=== PATIENT | male | born 1960 | race Caucasian/White ===

== ENCOUNTER 2017-01-11 13:27 | Emergency (ER) | payer OTHER ==
[~2017-01-11] VITALS: Ht 190.5 cm; Wt 154.2 kg
[~2017-01-11 13:27] MED LIST: -; ACETAMINOPHEN325 M1 PO; ADVAIR 250-501 EACH INH; ALEVE220 M1 PO; ALLOPURINOL 10100 M1 PO; ALLOPURINOL 30300 M2 PO; AMBIEN 10 MG TA10 MG PO; AMBIEN 5 MG TABL5 M1 PO; AMBIEN CR 6.26.25 M1 PO; AMBIEN CR12.5 MG PO; AMITRIPTYLINE H25 M2 PO; ASPIRIN EC81 M1 PO; ATORVASTATIN CA40 MG PO; BACLOFEN 10 MG10 MG PO; BACLOFEN 10MG T10 M1 PO; BAYER CHEWABLE81 MG PO; BENTYL20 MG PO; CEFTIN500 MG PO; COLACE100 MG PO; CYMBALTA30 MG PO; CYMBALTA60 MG PO; DEPAKOTE ER500 MG PO; DIAZEPAM 5 MG5 M1 PO; DICYCLOMINE HCL20 MG PO; DOXYCYCLINE 10100 MG PO; DOXYCYCLINE HYC50 M2 PO; ENDOCET 5-3251 EACH PO; FLOMAX PO; FOLIC ACID1 MG PO; GABAPENTIN 100100 MG PO; GLUCOPHAGE XR500 MG; GLUCOPHAGE XR500 MG PO; GLUCOPHAGE1000 MG PO; HUMALOG100 UNIT/1 SUBQ; HYDROCODONE-AP1 EAC6 PO; HYDROXYZINE PAM25 M1 PO; HYOSCYAMINE0.125 MG PO; IMITREX 25 MG T25 M1; INVEGA SUS117 MG/0.7 IM; INVEGA SUS156 MG/1 M IM; LEVEMIR SQ; LEVEMIR SUBQ; LIPITOR40 MG PO; METFORMIN HCL500 MG PO; NABUMETONE 500500 M2 PO; NABUMETONE 750750 M1 PO; NEURONTIN 300300 M1 PO; NEXIUM 40 MG CA40 M1 PO; NEXIUM40 MG PO; NORCO 5-325 TA1 EACH PO; NUVIGIL PO; NUVIGIL250 MG PO; PLAVIX 75 MG TA75 M1 PO; PROAIR HFA8.5 GM; PROAIR HFA8.5 GM INH; RELPAX40 MG PO; SIMVASTATIN40 MG PO; STOOL SOFTENER1 EAC2 PO; STOOL SOFTENER100 MG PO; SYMBICORT160 MCG/4. INH; SYMBICORT80 MCG/4.1 INH; SYMBYAX 6-50 M1 EACH PO; TRADJENTA5 MG PO; TRAMADOL 50 MG50 MG PO; TRICOR145 MG PO; VERAPAMIL E.R240 M1 PO; VISTARIL 25 MG25 M1 PO; ZANTAC 150MG T150 M1 PO; ZPAK PO; ZYVOX600 MG PO
[2017-01-11] MEDS ORDERED: ASPIR-TRIN325 MG PO (13:39)
[2017-01-11] MEDS ORDERED: NOVOLOG FL100 UNIT/M SC (13:40)
[2017-01-11] MEDS ORDERED: INVEGA TRI546 MG/1.7 IM (13:41)
[2017-01-11] MEDS ORDERED: PLAVIX 75 MG TA75 M1 PO (13:41)
[2017-01-11] MEDS ORDERED: LEVEMIR FL100 UNIT/2 SQ (13:41)
[2017-01-11] MEDS ORDERED: CLONAZEPAM2 MG PO (13:42)
[2017-01-11 13:58] LABS: ABSOLUTE NEUTROPHILS 7.8 thou/uL (1.4-8.2); BASOPHILS 0.5 % (0.0-2.0); EOSINOPHILS 0.8 % (0.0-3.0); HEMATOCRIT 41.7 % (42.0-52.0); HEMOGLOBIN 14.1 gm/dL (14.0-18.0); LYMPHOCYTES 16.6 % (24.0-44.0); MCHC 33.9 g/dL (28.0-37.0); MCV 82.7 fL (80.0-100.0); MONOCYTES 5.6 % (1.0-8.0); PLATELET COUNT 315 thou/uL (150-400); POLYS 76.5 % (36.0-66.0); RBC 5.04 mil/uL (4.50-6.00); RDW 15.6 % (10.5-14.5); WBC 10.2 thou/uL (4.0-11.0)
[2017-01-11 14:01] LABS: MANUAL DIFF NO
[2017-01-11 14:08] LABS: CALCIUM 9.1 mg/dL (8.5-10.1); CREATININE 1.1 mg/dL (0.7-1.3); POTASSIUM 3.4 mmol/L (3.5-5.1)
[2017-01-11 14:12] LABS: ALBUMIN 3.3 g/dL (3.4-5.0); TOTAL BILIRUBIN 0.7 mg/dL (<0.1-1.0)
[2017-01-11 14:41] LABS: URINE BILIRUBIN NEGATIVE (Negative); URINE BLOOD NEGATIVE (Negative); URINE COLOR YELLOW; URINE GLUCOSE-RANDOM* NEGATIVE (Negative); URINE KETONES NEGATIVE (Negative); URINE NITRITE NEGATIVE (Negative); URINE PROTEIN (DIPSTICK) NEGATIVE (Negative); URINE SPECIFIC GRAVITY 1.025 (1.003-1.035); URINE UROBILINOGEN 0.2 E.U./dl (0.2-1.0)
[2017-01-11] MEDS ORDERED: CIPRO500 MG PO ×2 (15:23→15:24)
[2017-01-11] MEDS ORDERED: FLAGYL500 MG PO ×2 (15:23→15:24)
[2017-01-11] MEDS ORDERED: HYDROCODONE-APA1 TA1 PO ×2 (15:23→15:24)
[2017-01-11] MEDS ORDERED: ZOFRAN ODT4 M1 PO ×2 (15:23→15:24)
[2017-01-11 15:55] VITALS: BP 133/95
== END 2017-01-11 15:56 | disposition home or self-care (01) ==
LOC: ER 13:27
PROVIDERS: Nurse Practitioner Family
DX: K57.32 Diverticulitis of large intestine without perforation or abscess without bleeding (principal); Z98.890 Other specified postprocedural states; E11.9 Type 2 diabetes mellitus without complications; G89.29 Other chronic pain; J45.909 Unspecified asthma, uncomplicated; Z86.73 Personal history of transient ischemic attack (TIA), and cerebral infarction without residual deficits; F20.89 Other schizophrenia; Z88.2 Allergy status to sulfonamides; Z91.048 Other nonmedicinal substance allergy status

== ENCOUNTER 2017-05-06 09:49 | Emergency (ER) | payer OTHER ==
[~2017-05-06] VITALS: Ht 190.5 cm; Wt 147.4 kg
[~2017-05-06 09:49] MED LIST changes: +ASPIR-TRIN325 MG PO; +CIPRO500 MG PO; +CLONAZEPAM2 MG PO; +FLAGYL500 MG PO; +HYDROCODONE-APA1 TA1 PO; +INVEGA TRI546 MG/1.7 IM; +LEVEMIR FL100 UNIT/2 SQ; +NOVOLOG FL100 UNIT/M SC; +ZOFRAN ODT4 M1 PO
[2017-05-06] MEDS ORDERED: DICYCLOMINE HCL20 MG PO (10:32)
[2017-05-06] MEDS ORDERED: LISINOPRIL5 MG PO (10:34)
[2017-05-06] MEDS ORDERED: NEXIUM40 MG PO (10:35)
[2017-05-06] MEDS ORDERED: NUVIGIL250 MG PO (10:36)
[2017-05-06] MEDS ORDERED: SYMBICORT160 MCG/4. INH (10:39)
[2017-05-06] MEDS ORDERED: DICLOFENAC SODI25 MG PO (11:17)
[2017-05-06 11:41] VITALS: BP 139/85
== END 2017-05-06 11:42 | disposition home or self-care (01) ==
LOC: ER 09:49
DX: I80.8 Phlebitis and thrombophlebitis of other sites (principal); E11.9 Type 2 diabetes mellitus without complications; F20.9 Schizophrenia, unspecified; F41.0 Panic disorder [episodic paroxysmal anxiety]; G89.29 Other chronic pain; M54.2 Cervicalgia; J45.909 Unspecified asthma, uncomplicated; I10 Essential (primary) hypertension; G47.30 Sleep apnea, unspecified; Z86.73 Personal history of transient ischemic attack (TIA), and cerebral infarction without residual deficits; Z88.2 Allergy status to sulfonamides; Z79.4 Long term (current) use of insulin

== ENCOUNTER 2017-06-23 | Inpatient (IN) | payer OTHER ==
[~2017-06-23] VITALS: Ht 190.5 cm; Wt 154.7 kg
[~2017-06-23] MED LIST changes: +DICLOFENAC SODI25 MG PO; -IMITREX 25 MG T25 M1; +IMITREX 25 MG T25 M1 PO; +LISINOPRIL5 MG PO
[2017-06-23 00:01] VITALS: BP 124/91
[2017-06-23] MEDS ORDERED: VITAMIN B-12500 MCG PO (00:14)
[2017-06-23] MEDS ORDERED: FLEXERIL PO (00:15)
[2017-06-23] MEDS ORDERED: COLACE100 MG PO (00:19)
[2017-06-23] MEDS ORDERED: INVEGA3 MG PO (00:21)
[2017-06-23] MEDS ORDERED: INCRUSE ELLI62.5 MCG INH (00:22)
[2017-06-23 00:24] LABS: ABSOLUTE NEUTROPHILS 6.2 thou/uL (1.4-8.2); BASOPHILS 0.7 % (0.0-2.0); EOSINOPHILS 1.2 % (0.0-3.0); HEMATOCRIT 42.7 % (42.0-52.0); HEMOGLOBIN 14.5 gm/dL (14.0-18.0); LYMPHOCYTES 21.8 % (24.0-44.0); MCH 29.1 pg (26.0-34.0); MCV 85.6 fL (80.0-100.0); MONOCYTES 9.3 % (1.0-8.0); PLATELET COUNT 233 thou/uL (150-400); RBC 4.99 mil/uL (4.50-6.00); RDW 15.5 % (10.5-14.5); WBC 9.2 thou/uL (4.0-11.0)
[2017-06-23 00:26] LABS: CALCIUM 8.9 mg/dL (8.5-10.1); CREATININE 1.1 mg/dL (0.7-1.3); MANUAL DIFF NO; POTASSIUM 3.6 mmol/L (3.5-5.1)
[2017-06-23] MEDS ORDERED: TRULICITY1.5 MG/0.5 SUBQ (00:26)
[2017-06-23] MEDS ORDERED: VENTOLIN HFA 1818 GM INH (00:27)
[2017-06-23 00:32] LABS: ALBUMIN 2.9 g/dL (3.4-5.0); TOTAL BILIRUBIN 0.2 mg/dL (<0.1-1.0); TOTAL PROTEIN 6.4 g/dL (6.4-8.2)
[2017-06-23 03:41] VITALS: BP 93/68
[2017-06-23 06:20] LABS: TSH 3.338 uIU/mL (0.358-3.740)
[2017-06-23 08:00] VITALS: BP 128/61
[2017-06-23 16:10] VITALS: BP 119/78
[2017-06-23 17:12] LABS: GLYCOHEMOGLOBIN (HGB A1C) 7.4 % (4.8-5.6)
[2017-06-23 19:27] VITALS: BP 136/85
[2017-06-24] VITALS (7 sets, daily range): BP systolic 100–136; BP diastolic 48–77
[2017-06-24 06:25] LABS: HEMATOCRIT 37.2 % (42.0-52.0); HEMOGLOBIN 12.4 gm/dL (14.0-18.0); MCH 28.7 pg (26.0-34.0); MCHC 33.2 g/dL (28.0-37.0); MCV 86.5 fL (80.0-100.0); RBC 4.31 mil/uL (4.50-6.00); RDW 15.2 % (10.5-14.5); WBC 6.7 thou/uL (4.0-11.0)
[2017-06-24 06:50] LABS: CALCIUM 8.2 mg/dL (8.5-10.1); POTASSIUM 3.6 mmol/L (3.5-5.1)
[2017-06-25 04:00] VITALS: BP 111/72
[2017-06-25 08:01] VITALS: BP 131/78
[2017-06-25] MEDS ORDERED: CIPRO500 MG/5 M PO (10:32)
[2017-06-25] MEDS ORDERED: FLAGYL500 MG PO (10:33)
[2017-06-25 10:40] VITALS: BP 111/73
== END 2017-06-25 11:13 | disposition home health service (06) | DRG 392 ==
LOC: ER → EROBS 02:45 → 4S 02:45
PROVIDERS: Emergency Medicine; Nurse Practitioner Acute Care
DX: K57.92 Diverticulitis of intestine, part unspecified, without perforation or abscess without bleeding (principal); I10 Essential (primary) hypertension; E78.5 Hyperlipidemia, unspecified; E11.9 Type 2 diabetes mellitus without complications; F20.9 Schizophrenia, unspecified; G40.909 Epilepsy, unspecified, not intractable, without status epilepticus; J45.909 Unspecified asthma, uncomplicated; M54.2 Cervicalgia; M54.5 Low back pain; G89.29 Other chronic pain; G47.33 Obstructive sleep apnea (adult) (pediatric); F80.82 Social pragmatic communication disorder; K21.9 Gastro-esophageal reflux disease without esophagitis; Z96.659 Presence of unspecified artificial knee joint; Z86.73 Personal history of transient ischemic attack (TIA), and cerebral infarction without residual deficits; Z82.49 Family history of ischemic heart disease and other diseases of the circulatory system; Z88.2 Allergy status to sulfonamides; Z91.040 Latex allergy status
CPT/HCPCS: 10100

== ENCOUNTER 2017-11-23 16:50 | Emergency (ER) | payer OTHER ==
[~2017-11-23] VITALS: Ht 190.5 cm; Wt 149.7 kg
[~2017-11-23 16:50] MED LIST changes: +CIPRO500 MG/5 M PO; +FLEXERIL PO; +INCRUSE ELLI62.5 MCG INH; +INVEGA3 MG PO; +TRULICITY1.5 MG/0.5 SUBQ; +VENTOLIN HFA 1818 GM INH; +VITAMIN B-12500 MCG PO
[2017-11-23 16:51] VITALS: BP 128/92
[2017-11-23] MEDS ORDERED: TRULICITY1.5 MG/0.5 INJECTION (17:08)
[2017-11-23] MEDS ORDERED: NUVIGIL250 MG PO (17:09)
[2017-11-23] MEDS ORDERED: DOXYCYCLINE 10100 MG PO (17:22)
== END 2017-11-23 17:43 | disposition home or self-care (01) ==
LOC: ER 16:50
DX: L03.317 Cellulitis of buttock (principal); I10 Essential (primary) hypertension; J45.909 Unspecified asthma, uncomplicated; E11.9 Type 2 diabetes mellitus without complications; G47.30 Sleep apnea, unspecified; M54.2 Cervicalgia; G89.29 Other chronic pain; G40.909 Epilepsy, unspecified, not intractable, without status epilepticus; Z86.73 Personal history of transient ischemic attack (TIA), and cerebral infarction without residual deficits; Z88.2 Allergy status to sulfonamides

== ENCOUNTER 2018-06-06 23:25 | Emergency (ER) | payer OTHER ==
[~2018-06-06] VITALS: Ht 190.5 cm; Wt 140.6 kg
[~2018-06-06 23:25] MED LIST changes: +TRULICITY1.5 MG/0.5 INJECTION
[2018-06-07] MEDS ORDERED: ALEVE220 MG PO (00:23)
[2018-06-07 00:32] VITALS: BP 126/85
== END 2018-06-07 00:35 | disposition home or self-care (01) ==
LOC: ER 23:25
DX: S50.01XA Contusion of right elbow, initial encounter (principal); K21.9 Gastro-esophageal reflux disease without esophagitis; E11.9 Type 2 diabetes mellitus without complications; F20.9 Schizophrenia, unspecified; G89.29 Other chronic pain; G40.909 Epilepsy, unspecified, not intractable, without status epilepticus; J45.909 Unspecified asthma, uncomplicated; I10 Essential (primary) hypertension; Z86.73 Personal history of transient ischemic attack (TIA), and cerebral infarction without residual deficits; Z79.4 Long term (current) use of insulin; Z79.899 Other long term (current) drug therapy; Z88.2 Allergy status to sulfonamides; Z88.8 Allergy status to other drugs, medicaments and biological substances; W19.XXXA Unspecified fall, initial encounter; Y93.89 Activity, other specified; Y92.89 Other specified places as the place of occurrence of the external cause; Y99.8 Other external cause status

== ENCOUNTER 2020-08-06 08:42 | Inpatient (IN) | payer OTHER ==
[~2020-08-06] VITALS: Ht 190.5 cm; Wt 269.0 kg
[2020-08-06 08:42] VITALS: BP 90/61
[~2020-08-06 08:42] MED LIST changes: +ALEVE220 MG PO
[2020-08-06 09:36] LABS: ABSOLUTE NEUTROPHILS 10.7 thou/uL (1.4-8.2); BASOPHILS 0.4 % (0.0-2.0); HEMOGLOBIN 13.1 gm/dL (14.0-18.0); LYMPHOCYTES 7.7 % (24.0-44.0); MCH 27.5 pg (26.0-34.0); MCV 85.9 fL (80.0-100.0); MONOCYTES 7.3 % (1.0-8.0); PLATELET COUNT 297 thou/uL (150-400); POLYS 84.6 % (36.0-66.0); RBC 4.77 mil/uL (4.50-6.00); RDW 16.1 % (10.5-14.5); WBC 12.7 thou/uL (4.0-11.0)
[2020-08-06 09:54] LABS: PROTIME 10.5 Seconds (9.3-11.4)
[2020-08-06 09:58] LABS: CALCIUM 8.7 mg/dL (8.5-10.1); CREATININE 1.1 mg/dL (0.7-1.3); POTASSIUM 4.7 mmol/L (3.5-5.1)
[2020-08-06 10:05] LABS: ALBUMIN 2.5 g/dL (3.4-5.0); APTT 19.8 Seconds (24.5-32.8); MAGNESIUM 1.7 mg/dL (1.8-2.4); TOTAL BILIRUBIN 0.9 mg/dL (0.2-1.0); TOTAL PROTEIN 5.8 g/dL (6.4-8.2)
[2020-08-06] MEDS ORDERED: MIDODRINE HCL2.5 M1 PO (12:31)
[2020-08-06] MEDS ORDERED: KEPPRA 500 MG500 MG PO (12:31)
[2020-08-06] MEDS ORDERED: ANUSOL-HC25 MG RECTAL (12:33)
--- NOTE | 2020-08-06 14:38 | EKG ---
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
[2020-08-06 15:31] VITALS: BP 107/66
--- NOTE | 2020-08-06 16:19 | NUR ---
TRIED CALLING REPORT TO ADMITTING FLOOR X 3 NOT READY. NURSE WILL CALL WHEN ABLE TO TAKE REPORT
[2020-08-06 17:36] LABS: HEMATOCRIT 31.4 % (42.0-52.0)
[2020-08-06 17:39] LABS: HEMOGLOBIN 10.6 gm/dL (14.0-18.0)
[2020-08-06] MEDS ORDERED: CLOZAPINE100 MG PO (18:40)
--- NOTE | 2020-08-06 18:42 | NUR ---
ATTEMPTED TO CALL REPORT TO FLOOR WHILE PT IN NUCLEAR MED, NOT AVAILABLE
[2020-08-06 19:44] VITALS: BP 103/55
--- NOTE | 2020-08-06 21:28 | NUR ---
DROP IN BP, ELIEZER DICKENS NOTIFIIED. 500 CC BOLUS STARTED. WILL CONTINUE TO MONITOR BP TO ENSURE STABLE BEFORE TRANSFER.
--- NOTE | 2020-08-06 22:22 | NUR ---
TW SAIRA DICKENS, VERIFIED LAST BP WITH SUPERINTENDENT NONSELLING, PER SAIRA SHE IS OK WITH PT GOING UP TO THE 3 WEST.
--- NOTE | 2020-08-06 22:43 | NUR ---
2240 PT TO FLOOR FROM ER, RESDTING IN BED WITH NO COMPLAINTS OF PAIN OR DISCOMFORT.FALL PRECAUTIONS IN PLACE, BASELINE ASSESSMENT COMPLETED. SEE ADMISSION ASSESSMENT, WILL CONTINUE TO MONITOR
[2020-08-07 05:43] LABS: HEMATOCRIT 29.3 % (42.0-52.0); HEMOGLOBIN 9.6 gm/dL (14.0-18.0); MCH 28.4 pg (26.0-34.0); MCHC 32.6 g/dL (28.0-37.0); MCV 87.1 fL (80.0-100.0); RBC 3.36 mil/uL (4.50-6.00); WBC 13.1 thou/uL (4.0-11.0)
[2020-08-07 07:46] VITALS: BP 91/42
[2020-08-07 12:24] VITALS: BP 87/59
--- NOTE | 2020-08-07 13:57 | NUR ---
INITIAL ASSESSMENT: PATRICIA reviewed chart and spoke with nursing and attending physician. Pt was admitted from [facility] and placed in Enhanced Isolation due to COVID-19. Pt is afebrile and not requiring O2. PATRICIA spoke with [facility] post-acute liaison, who states pt had his first COVID positive test at the facility on 07/23. PATRICIA placed call to pt's room. No answer. PATRICIA placed call to pt's sister, Faye. Contact number for Faye is no longer in service. Jesse Tan also listed as a contact for pt. PATRICIA spoke with Jesse via phone, who states he was pt's immigration case manager at [facility]. Pt has been off of their service since he moved [facility]. Jesse is no longer involved in pt's care. PATRICIA faxed clinical info to [facility] for review. Plan is for pt to return to [facility] when medically stable. PATRICIA is following to assist as needed with discharge planning.
--- NOTE | 2020-08-07 14:28 | NUR ---
PATIENT LEFT UNIT AT THIS TIME FOR GI PROCEDURE.
[2020-08-07 16:45] VITALS: BP 105/58
--- NOTE | 2020-08-07 19:21 | NUR ---
PATIENT STARTED DRINKINK MIRALAX WILL BE NPO AT MIDNIGHT AND HAVE COLONSCOPY 08/08/20
[2020-08-07 21:26] VITALS: BP 213/189
[2020-08-08 00:56] LABS: HEMATOCRIT 24.3 % (42.0-52.0); HEMOGLOBIN 7.9 gm/dL (14.0-18.0); MCH 28.2 pg (26.0-34.0); MCHC 32.6 g/dL (28.0-37.0); MCV 86.5 fL (80.0-100.0); RBC 2.81 mil/uL (4.50-6.00); RDW 15.9 % (10.5-14.5); WBC 7.9 thou/uL (4.0-11.0)
[2020-08-08 01:24] VITALS: BP 99/54
--- NOTE | 2020-08-08 02:13 | NUR ---
ASSESSMENT DOCUMENTED.PT ON BOWEL PREP FOR COLONOSCOPY.PT PASSING RED BLOOD IN LARGE AMOUNT FROM RECTUM.STAFF ASSIST WITH [facility].FURNACE OPERATOR AND TENDER NOTIFIED.CBC ORDERS .HGB AT 7.9.PT DENIES DIZZINESS BUT DO ADMIT THAT HE HAS HISTORY OF DIZZINESS.STACHY ON MONITOR,.DENIES PAIN.NPO AFTER MIDNOC FOR COLONOSCOPY THIS AM.NO FURTHER CONCERNS VOICED AT THIS TIME.POC IS TO CONT WITH POC.
[2020-08-08 04:00] VITALS: BP 92/57
[2020-08-08 05:00] VITALS: BP 92/57
[2020-08-08 07:10] VITALS: BP 150/133
--- NOTE | 2020-08-08 13:52 | NUR ---
PATRICIA reviewed chart and spoke with nursing and attending physician. Pt remains in Enhanced Isolation due to COVID-19. Pt is afebrile and not on O2. Pt to have EGD/colonoscopy today. Pt's hemoglobin is 7.9 today. Down from 9.6 yesterday. PATRICIA provided update to [facility] post-acute liaison. Unsure if pt will be ready for discharge back to [facility] over the weekend. [facility] is able to accept pt back if he is ready. Staff to contact on-call liaison, Ludivina, to coordinate discharge. Will need chart copied and finalized discharge orders/summary to be faxed to the facility when available. Nursing to call report prior to pt's discharge and notify pt's of discharge. PATRICIA is available to assist as needed. [facility]-- Ludivina (Liaison): [phone]
[2020-08-08 20:06] VITALS: BP 97/65
[2020-08-09 04:11] VITALS: BP 115/53
--- NOTE | 2020-08-09 06:00 | NUR ---
NO BM TONIGHT. DENIES PAIN. COMPLAINTS THAT HEADACHE HAS BEEN A SYMPTOM FOR HIM. HE HAS RESTED TONIGHT.
[2020-08-09 07:33] VITALS: BP 109/64
[2020-08-09 08:34] LABS: HEMOGLOBIN 7.2 gm/dL (14.0-18.0); MCH 28.2 pg (26.0-34.0); MCHC 32.6 g/dL (28.0-37.0); MCV 86.6 fL (80.0-100.0); RBC 2.54 mil/uL (4.50-6.00); RDW 15.9 % (10.5-14.5); WBC 5.8 thou/uL (4.0-11.0)
[2020-08-09 08:38] LABS: CALCIUM 8.1 mg/dL (8.5-10.1); CREATININE 0.9 mg/dL (0.7-1.3); POTASSIUM 3.6 mmol/L (3.5-5.1)
[2020-08-09 12:03] VITALS: BP 111/60
[2020-08-09 16:10] VITALS: BP 115/68
[2020-08-09 17:43] LABS: AMP/METHAMP Negative (Negative); BARBITURATES Negative (Negative); BENZODIAZEPINES Negative (Negative); COCAINE Negative (Negative); METHADONE Negative (Negative); OPIATES Negative (Negative); PCP Negative (Negative)
--- NOTE | 2020-08-09 17:57 | NUR ---
RN ASSUMED PT'S CARE AT 0700AM, PT IS A&OX3, PT'S VS ARE STABLE, PT DOES NOT HAVE S/S OF GI BLEEDING TODAY, PT DOES NOT HAVE SOB AND FEVER TODAY, PT STARTS HOME MEDICATIONS TODAY.
[2020-08-09 20:15] VITALS: BP 95/49
--- NOTE | 2020-08-10 04:39 | NUR ---
PT LYING IN BED. VOIDING PER URINAL. DENIES PAIN. RESTING COMFORTABLY. NO NEEDS VOICED. CALL LIGHT WITHIN REACH. FREQUENT OBSERVATION.
[2020-08-10 07:22] VITALS: BP 138/52
[2020-08-10 07:54] LABS: HEMATOCRIT 20.5 % (42.0-52.0); HEMOGLOBIN 6.9 gm/dL (14.0-18.0); MCH 29.4 pg (26.0-34.0); MCHC 33.8 g/dL (28.0-37.0); MCV 87.1 fL (80.0-100.0); RBC 2.35 mil/uL (4.50-6.00); RDW 16.5 % (10.5-14.5); WBC 4.6 thou/uL (4.0-11.0)
[2020-08-10 12:47] VITALS: BP 105/61; BP 97/55
[2020-08-10 16:50] VITALS: BP 104/71
--- NOTE | 2020-08-10 17:36 | NUR ---
RN ASSUMED PT'S CARE AT 0700AM, PT IS A&OX2 ( PERSON AND PLACE ), PT'S VS ARE STABLE, PT'S HGB IS 6.9 TODAY, PT FINISHED 1 UNIT BLOOD TRANSFUSION AT 1600PM, NO REACTION BY THIS TIME, PT DENIES SOB AND PAIN AT THIS TIME.
[2020-08-10 19:35] VITALS: BP 101/67
--- NOTE | 2020-08-11 01:14 | NUR ---
ASSESSED AT START OF SHIFT PT A&OX3.PT C/O HEADACHE TYLENOL GIVEN. URINAL AT BEDSIDE. PT HAD SOME INCONTINENT. SINUS TACHY ON THE MONITOR. FALL PREC IN PLACE AND CALL LIGHT AT REACH WILL CONT TO MONITOR. NO SIGNS OF OCCULT BLOOD THIS SHIFT.
[2020-08-11 03:00] VITALS: BP 107/52
[2020-08-11 06:10] LABS: HEMATOCRIT 21.3 % (42.0-52.0); HEMOGLOBIN 7.1 gm/dL (14.0-18.0); MCH 28.7 pg (26.0-34.0); MCHC 33.5 g/dL (28.0-37.0); MCV 85.6 fL (80.0-100.0); RBC 2.49 mil/uL (4.50-6.00); RDW 16.9 % (10.5-14.5); WBC 4.9 thou/uL (4.0-11.0)
--- NOTE | 2020-08-11 11:51 | NUR ---
DISCHARGE NOTE: PATRICIA reviewed chart and spoke with nursing and attending physician. Pt remains in Enhanced Isolation due to COVID-19. Pt is medically stable for discharge back to [facility] today. Awaiting discharge orders/summary to fax to facility. PATRICIA notified [facility] post-acute liaison, who arranged w/c van transportation for [id number] this afternoon. PATRICIA notified attending physician and nursing of transportation time. PATRICIA placed call to pt's room. No answer. Chart copy requested. Nursing provided with number to call report. SW is following to finalize discharge.
--- NOTE | 2020-08-11 13:38 | NUR ---
ASSUMED CARE AT 1135 FROM NURSE HERRING.
[2020-08-11] MEDS ORDERED: ACETAMINOPHEN325 M1 PO (13:58)
--- NOTE | 2020-08-11 15:39 | NUR ---
PT REPORT CALLED TO [facility]. REPORT CALLED TO NURSE CAT. IV REMOVED, TELEMETRY REMOVED.
--- NOTE | 2020-08-12 22:06 | PATH ---
[facility] [address] [place] [address] PATHOLOGY RPT PROCEDURE Name: ZAFARBARRON Room #: 350-P [facility] IN M.R.#: [id number] Admission: 08/06/20 Date of : 62 Discharge: 08/11/20 Report #: [id number] Path Case #: [id number] [facility] Accession Number: [id number] . 01 Material submitted: . cecum - POLYP AT CECUM . 01 Clinician provided ICD-10: U07.1 K92.2 . 01 Clinical history: . GI BLEED, COVID, SYNCOPE, SEIZURE . 02 Diagnosis: "Polyp at cecum", biopsy: - Tubular adenoma; no high-grade dysplasia. (CLW:pit 08/12/2020) QTP 08/12/2020 1513 Local . 02 Electronically signed: . Arabella Zamora MD, Pathologist NPI- [id number] . 01 Gross description: . The specimen is received in formalin, labeled "Barron Zafar Jr, polyp at cecum" and consists of 2 fragments of pink-boyce tissue measuring 0.4 x 0.2 cm each which are entirely submitted in A1. (SDY; 08/11/2020) SYU/SYU 08/11/2020 1027 Local . 02 Pathologist provided ICD-10: D12.0 . 02 CPT . 966291 Specimen Comment: A courtesy copy of this report has been sent to [phone] Specimen Comment: [phone], Specimen Comment: Report sent to ,DR PERKINS / DR HERNANDEZ Performed at: [address] [id number] MD Rajinder Reynolds MD Phone: [phone] Performed at: [address] [id number] [address] [address] PATHOLOGY RPT PROCEDURE Name: BARRON ZAFAR JR Room #: 350-P [facility] IN M.R.#: [id number] Admission: 08/06/20 Date of : 62 Discharge: 08/11/20 Report #: [id number] Path Case #: [id number] MD Shelly Verde MD Phone: [phone]
--- NOTE | 2020-08-13 10:36 | P ---
[facility] [place] [address] PROCEDURE REPORT Name: BARRON ZAFAR Room #: 350-P [facility] IN M.R.#: [id number] Admission: 08/06/20 Attend Phys: Alberto Grace MD Discharge: 08/11/20 Date of : 62 Report #: [id number] THIS REPORT FOR: cc: Sincere Germain MD, Shyam MD McElhinney, Christian C. MD ~ CC: ALBERTO Germain DATE OF SERVICE: 08/08/2020 PROCEDURE PERFORMED: Colonoscopy with biopsies. HISTORY OF PRESENT ILLNESS: The patient is a 59-year-old male with recent bright red blood per rectum. He has had a drop in his hemoglobin. Bleeding scan was negative. He has a history of previous partial resection of the sigmoid colon due to diverticulitis. He has a known history of diverticulosis. Plan is for colonoscopy. Flexible sigmoidoscopy yesterday was unsuccessful due to the amount of stool and blood that was noted. The patient did prep for a full colonoscopy today. DESCRIPTION OF PROCEDURE: The risks and benefits of the procedure were explained to the patient, those risks including but not limited to bleeding, perforation and the risk of sedation. He understood these risks and gave informed consent. Sedation was given using propofol per anesthesia. Next, a digital rectal exam was initially performed which was normal other than bright red blood was noted in the rectal vault. Next, using a standard Olympus colonoscope, the scope was placed in the patient's anus and advanced under direct vision to the cecum. The overall prep was fair in most areas due to old blood. There was a small amount of stool but most areas were noted to have old blood. Multiple washings and aspirations were performed. In the cecum, there was a 4 mm sessile polyp. This was removed with cold forceps; otherwise, normal. The ileocecal valve was normal. Diverticulosis was noted throughout the ascending, transverse, descending and sigmoid colon; however, no evidence of fresh blood was noted in the ascending or the transverse colon. As the scope was slowly withdrawn, a mixture of some bright red blood and maroon-type stools was noted in the descending and the remaining sigmoid colon. Again, multiple diverticula were noted in this region. Multiple washings and aspirations were performed. I did not see any active bleeding from any of the diverticulum. The previous surgical anastomosis was noted in the remaining distal sigmoid colon which was well healed and widely patent. The rectal mucosa was normal that was visualized. Retroflexion showed small internal hemorrhoids and nonbleeding. The scope was then withdrawn and the procedure terminated. The patient tolerated the procedure well. [address] [address] PROCEDURE REPORT Name: BARRON ZAFAR JR Room #: 350-P [facility] IN M.R.#: [id number] Admission: 08/06/20 Attend Phys: Alberto Grace MD Discharge: 08/11/20 Date of : 62 Report #: [id number] IMPRESSION: 1. Likely diverticular bleed in the descending and remaining sigmoid colon. No active bleeding at this time. 2. Pandiverticulosis. 3. Small cecal polyp. 4. Small internal hemorrhoids. RECOMMENDATIONS: 1. Await biopsy results. 2. Observe the patient post-procedure. No evidence of active bleeding at this time. Some old blood was noted in the left colon. Suspect this is the source of bleeding from a diverticulum, which has now stopped. If there are signs of recurrent bleeding, we will consider Interventional Radiology at that point. Thank you for allowing me to participate in his care. <ELECTRONICALLY SIGNED> By: Felipe Boss MD 08/13/20 1036 1036 0301 Felipe Boss MD /nt
== END 2020-08-11 15:47 | DRG 177 ==
LOC: ER 08:42 → EROBS 13:19 → 3W 13:19 → EROBS 13:41 → 3W 18:30
PROVIDERS: Emergency Medicine; Nurse Practitioner; Nurse Practitioner Family; ADMIT Internal Medicine; ATTEND Internal Medicine
PROC: 0DBH8ZZ Excision of Cecum, Via Natural or Artificial Opening Endoscopic (ICD-10-PCS; principal; 2020-08-10)
PROC: 30233N1 Transfusion of Nonautologous Red Blood Cells into Peripheral Vein, Percutaneous Approach (ICD-10-PCS; principal; 2020-08-10)
DX: U07.1 COVID-19 (principal); E43 Unspecified severe protein-calorie malnutrition; K57.31 Diverticulosis of large intestine without perforation or abscess with bleeding; I69.359 Hemiplegia and hemiparesis following cerebral infarction affecting unspecified side; D62 Acute posthemorrhagic anemia; Z68.45 Body mass index [BMI] 70 or greater, adult; I95.1 Orthostatic hypotension; I95.9 Hypotension, unspecified; E11.9 Type 2 diabetes mellitus without complications; F20.9 Schizophrenia, unspecified; G89.29 Other chronic pain; D12.0 Benign neoplasm of cecum; K64.8 Other hemorrhoids; K21.9 Gastro-esophageal reflux disease without esophagitis; M10.9 Gout, unspecified; F32.9 Major depressive disorder, single episode, unspecified; G40.409 Other generalized epilepsy and epileptic syndromes, not intractable, without status epilepticus; E78.5 Hyperlipidemia, unspecified; M54.5 Low back pain; J45.909 Unspecified asthma, uncomplicated; Z96.651 Presence of right artificial knee joint; Z90.49 Acquired absence of other specified parts of digestive tract; Z79.01 Long term (current) use of anticoagulants; Z79.899 Other long term (current) drug therapy; Z79.4 Long term (current) use of insulin; Z88.2 Allergy status to sulfonamides
CPT/HCPCS: 10879; 62110; 62900

== ENCOUNTER 2020-08-14 16:48 | Inpatient (IN) | payer OTHER ==
[~2020-08-14] VITALS: Ht 182.9 cm; Wt 104.3 kg
--- NOTE | ~2020-08-14 | EMS ---
[address] [address] EMS Patient Care Report Name: BARRON ZAFAR Room #: PRE MHumaira#: [id number] Admission: Attend Phys: Discharge: Date of : 62 Report #: [id number] THIS REPORT FOR: //name// Report Transmitted: 08/14/2020 16:05 EMS Care Summary [place], [place]/[facility] Incident [id number] @ 08/14/2020 16:20 Incident [id number] [place] [address] Patient BARRON ZAFAR Male, 59 Years 1960 Patient Address [address] [place] [address] [address] [id number] Patient History Asthma,Diabetes,Seizures,Pneumonia,Depression,Gout,Novel Coronavirus (COVID-19), Patient Allergies Sulfa,Adhesive Tape, Patient Medications Levemir, Clonazepam, Symbicort, Trulicity, Ventolin, Invega, Duloxetine, Allopurinol, Cyanocobalamin Co57, Gabapentin, Atorvastatin, Aspirin, Chief Complaint FEELS LIKE HE HAD A SEIZURE Disposition Transported No Lights/[place] Dispatch Reason Sick Person Transported To [facility] Narrative M528 ARRIVES TO FIND 59 Y/O M PT WHO STATES THAT HE FEELS LIKE HE HAD A SEIZURE. PT IS UNABLE TO BE MORE SPECIFIC. [address] [address] EMS Patient Care Report Name: BARRON ZAFAR JR Room #: [facility]#: [id number] Admission: Attend Phys: Discharge: Date of : 62 Report #: [id number] ASSESSMENTS AND TREATMENTS NOTED. PT SLIDES FROM BED TO COT. PT MOVED TO AMBULANCE. PT TRANSPORTED. M528 ARRIVES AT DESTINATION. PT MOVED TO ROOM IN ED. PT SLIDES FROM COT TO BED IN ROOM. PT CARE TRANSFERRED. M528 RETURNS TO SERVICE. Initial Vitals @16:35P: 92,BP: 105/70,SpO2: 84, @16:41P: 90,R: 18,BP: 164/118,Pain: 0/10,GCS: 15,Glucose: 85,SpO2: 94,Revised Trauma: 12, Assessments @16:28MENTAL:Person Oriented,Time Oriented,Event Oriented,Place Oriented,SKIN:Diaphoresis,Pale,HEENT:LUNG SOUNDS:ABDOMEN:PELVIS//GI:EXTREMITIES:Right Leg: Weakness,Left Leg: Weakness,PULSE:NEURO:@16:38MENTAL:No Abnormalities,SKIN:Pale,Diaphoresis,HEENT:Head/Face: No Abnormalities,Eyes: No Abnormalities,Neck/Airway: No Abnormalities,LUNG SOUNDS:General: No Abnormalities,Left Upper: No Abnormalities,Right Upper: No Abnormalities,Left Lower: No Abnormalities,Right Lower: No Abnormalities,ABDOMEN:General: No Abnormalities,Left Upper: No Abnormalities,Right Upper: No Abnormalities,Left Lower: No Abnormalities,Right Lower: No Abnormalities,PELVIS//GI:No Abnormalities,EXTREMITIES:Right Leg: Weakness,Left Leg: Weakness,Left Arm: No Abnormalities,Right Arm: No Abnormalities,PULSE:NEURO:No Abnormalities, Impression Seizures Procedures @16:35Saline Lock 0cc (20 ga) Site: Antecubital-LeftResponse: UnchangedFailed@16:28ALS AssessmentResponse: UnchangedSucceeded@16:353-Lead ECGResponse: UnchangedSucceeded Timeline 16:18,Call Received 16:18,Dispatch Notified 16:20,Dispatched 16:20,En Route 16:26,On Scene 16:28,At Patient 16:28,ALS Assessment,Response: UnchangedSucceeded, 16:35,Saline Lock 0cc 20 ga Site: Antecubital-Left,Response: UnchangedFailed, 16:35,3-Lead ECG,Response: UnchangedSucceeded, 16:35,BP: 105/70 M,PULSE: 92,RR: R,SPO2: 84 Ox,ETCO2: ,BG: ,PAIN: ,GCS: , 16:37,Depart Scene 16:41,BP: 164/118 M,PULSE: 90,RR: 18 R,SPO2: 94 Ox,ETCO2: ,B,PAIN: 0,GCS: 15, [facility] [address] [place] [address] EMS Patient Care Report Name: BARRON ZAFAR Room #: [facility] M.R.#: [id number] Admission: Attend Phys: Discharge: Date of : 62 Report #: [id number] 16:45,At Destination 16:53,Call Closed Disclaimer v1.1 Copyright 2020 [email or web address] This EMS Care Summary contains data elements from the applicable legal record (which may be displayed differently). It is designed to provide pertinent information for the following purposes: continuity of care, clinical quality, and state data reporting. The complete legal record is available to ED staff and administrators of the receiving hospital in [employer]'s Patient Tracker. All data is provided "as is."
[~2020-08-14 16:48] MED LIST changes: +ANUSOL-HC25 MG RECTAL; +CLOZAPINE100 MG PO; +KEPPRA 500 MG500 MG PO; +MIDODRINE HCL2.5 M1 PO
[2020-08-14 16:49] VITALS: BP 117/77
[2020-08-14 17:34] LABS: WBC 7.1 thou/uL (4.0-11.0)
[2020-08-14 17:36] LABS: HEMATOCRIT 20.4 % (42.0-52.0); HEMOGLOBIN 6.6 gm/dL (14.0-18.0); MCH 28.6 pg (26.0-34.0); MCHC 32.6 g/dL (28.0-37.0); MCV 87.7 fL (80.0-100.0); PLATELET COUNT 206 thou/uL (150-400); RBC 2.33 mil/uL (4.50-6.00)
[2020-08-14] MEDS ORDERED: ASPIRIN EC325 M1 PO (17:38)
[2020-08-14] MEDS ORDERED: DOXYCYCLINE 10100 M2 PO (17:40)
[2020-08-14] MEDS ORDERED: DEPAKOTE ER500 M1 PO (17:42)
[2020-08-14] MEDS ORDERED: CIPRO500 M1 PO (17:43)
[2020-08-14] MEDS ORDERED: DULOXETINE HCL60 MG PO (17:44)
[2020-08-14] MEDS ORDERED: LEVEMIR100 UNIT/1 SUBQ (17:45)
[2020-08-14] MEDS ORDERED: IMITREX 25 MG T25 M1 PO (17:45)
[2020-08-14] MEDS ORDERED: NOVOLOG100 UNIT/1 SUBQ (17:46)
[2020-08-14] MEDS ORDERED: SYMBICORT160 MCG/4. INH (17:47)
[2020-08-14] MEDS ORDERED: TRULICITY1.5 MG/0.5 SUBQ (17:48)
[2020-08-14] MEDS ORDERED: INVEGA TRI546 MG/1.7 IM (17:49)
[2020-08-14 18:01] LABS: CALCIUM 8.1 mg/dL (8.5-10.1); POTASSIUM 3.2 mmol/L (3.5-5.1)
[2020-08-14 18:06] LABS: ABSOLUTE NEUTROPHILS 6.6 thou/uL (1.4-8.2); PLATELET ESTIMATE NORMAL
[2020-08-14 18:07] LABS: DIRECT BILIRUBIN 0.1 mg/dL (<0.1-0.2); TOTAL BILIRUBIN 0.3 mg/dL (0.2-1.0); TOTAL PROTEIN 4.9 g/dL (6.4-8.2)
--- NOTE | 2020-08-14 18:40 | NUR ---
SPOKE WITH CAT FROM [employer], UPDATED ON POC
[2020-08-14 19:41] LABS: MAGNESIUM 1.6 mg/dL (1.8-2.4); PHOSPHORUS 4.2 mg/dL (2.5-4.9)
[2020-08-14 20:26] VITALS: BP 118/71
--- NOTE | 2020-08-14 20:56 | NUR ---
CONTACTED [facility] REGARDING COVID TEST DATE. VERIFIED COVID TEST DATE 07/28/20.
[2020-08-14 21:26] VITALS: BP 118/71
[2020-08-14 21:46] VITALS: BP 91/64
[2020-08-15 02:09] VITALS: BP 105/57; BP 125/61
[2020-08-15 04:19] VITALS: BP 125/61
[2020-08-15 04:40] VITALS: BP 103/49; BP 120/61; BP 125/61
--- NOTE | 2020-08-15 08:05 | NUR ---
ADMIT PT ADMITTED TO ROOM 459 VIA ED WITH GI BLEED, SEIZURE PT A/O X4 ANSWERED ALL ADMISSION QUESTIONS WITHOUT DIFFICULTY. REPORTS BEING DIZZY AND LIGHTHEADED WITH MOVEMENT. SKIN VERY PALE COOL AND CLAMMY VSS PT DENIES CHEST PAIN OR SOB. 2 UNITS PRBC'S ORDERED AND INFUSED, PT'S COLOR LOOKED BETTER AND PT HAD NO BLOODY STOOLS THIS SHIFT. PROTONIX DRIP AT 25MLS/HR, ACCUCHECK ON ARRIVAL 41 ORANGE JUICE PROVIDED AND 100 MLS OF D10 IVF'S GIVEN. ACCUCHECK UP TO 70 THEN 100. D51/2NS@100MLS INFUSING FOR MAINTENANCE AND HYDRATION. GI CONSULT. PT VOIDS PER URINAL. HAS A RECENT HISTORY OF FALLS BED ALARM IN PLACE.
[2020-08-15 08:45] LABS: HEMATOCRIT 24.9 % (42.0-52.0); HEMOGLOBIN 8.2 gm/dL (14.0-18.0); MCH 29.3 pg (26.0-34.0); MCHC 32.7 g/dL (28.0-37.0); MCV 89.6 fL (80.0-100.0); RBC 2.78 mil/uL (4.50-6.00); WBC 3.9 thou/uL (4.0-11.0)
[2020-08-15 09:02] VITALS: BP 122/66
[2020-08-15 09:02] LABS: CALCIUM 8.1 mg/dL (8.5-10.1); MAGNESIUM 1.6 mg/dL (1.8-2.4); POTASSIUM 3.2 mmol/L (3.5-5.1)
--- NOTE | 2020-08-15 13:37 | NUR ---
Case opened to follow for dc planning. Pt known to cm from recent inpt stay on the Covid Unit. He is a ltc resident at [facility] and dc'd back to a skilled medicare bed on 08/11/20. The pt has readmitted with a GI bleed and enceph/seizure. He is noted to be his own person and his sister's contact number has been disconnected. The SNF reports no other known contacts (the pt's [facility] no longer follows him as he is in ltc there). Ecologist attemted to speak with the pt without success. Dc plan at this time is to return to skilled medicare bed at [facility]. Will ask for therapy evals as appropriate. GI and Neuro consulted. The pt is no longer in [facility] as his first postive covid was on 07/23/20. Case discussed with the care team.
--- NOTE | 2020-08-15 14:57 | NUR ---
FAXED CLINICAL UPDATE TO [facility] SPOKE WITH TEJAL IN ADM SHE RECEIVED UPDATE. DP TO FOLLOW.
[2020-08-15 17:14] VITALS: BP 149/72
[2020-08-15 18:57] LABS: INR 1.1; PROTIME 11.2 Seconds (9.3-11.4)
--- NOTE | 2020-08-15 19:12 | NUR ---
Received awake on bed. Due medications given as prescribed. On nothing per orem, pt informed and aware; offered oral care and ice chips. On seizure precations, protocol observed- no seizures noted the whole shift. On telemetry; no complains and signs of chest pain, crushing sensation and heaviness. Assisted in ADLs. On room air. On blood sugar monitoring, taken and recorded accordingly, with sliding scale insulin ordered. Able to use urinal and bedpan. With IV at L thumb and L upper arm; D5NS at 100cc/hr and Protonix at 25cc/hr, infusing well. Pt able to turn on his sides. Skin intact. No active bleeding noted. Consults called in by US. Pt seen and examined by Dr Calle this AM; CT scan of abdomen and pelvis ordered as well as Covid swab- done and specimen sent to lab- coordinated with CT scan re: bringing pt down. Falls bundle in place. Pt seen and examined by Dr Esposito this AM, nuclear med GI bleed ordered; staff clarified if both tests needs to be done- verified with Dr Calle, to still have CT scan and nuclear med GI bleed test; brought down via bed, tolerated procedure, back to room safely. Seen and examined by Dr Barber- asked re; pt's Depakote from his long term- relayed to him re: dosage; clarified with physician since pt had Keppra IV 500mg this AM, if to still give Depakote- As per Dr Barber- to still give both meds. Lab called re: covid result- still positive- relayed to Dr Calle- Night charge nurse informed; pt remained asymptomatic. No complains of pain made the whole shift. To continue monitoring patient.
[2020-08-15 19:14] VITALS: BP 138/71
[2020-08-16 05:03] LABS: HEMATOCRIT 25.3 % (42.0-52.0); HEMOGLOBIN 8.3 gm/dL (14.0-18.0); MCH 29.6 pg (26.0-34.0); MCHC 32.6 g/dL (28.0-37.0); MCV 90.7 fL (80.0-100.0); PLATELET COUNT 200 thou/uL (150-400); RBC 2.79 mil/uL (4.50-6.00); RDW 16.9 % (10.5-14.5); WBC 2.8 thou/uL (4.0-11.0)
[2020-08-16 05:15] LABS: CALCIUM 8.1 mg/dL (8.5-10.1); CREATININE 1.1 mg/dL (0.7-1.3); POTASSIUM 3.9 mmol/L (3.5-5.1)
[2020-08-16 07:18] LABS: ABSOLUTE NEUTROPHILS 1.5 thou/uL (1.4-8.2); PLATELET ESTIMATE NORMAL
[2020-08-16 07:30] VITALS: BP 111/70
--- NOTE | 2020-08-16 13:11 | NUR ---
Received awake on bed. Due medications given as prescribed, able to swallow meds w/o difficulty. On room air. Vital signs stable. On full liquid diet- tolerating well; no nausea, no vomiting and no abdominal pain noted. On telemetry; no complains and signs of chest pain, crushing sensation and heaviness. With IV at L upper arm, with D5Ns at 100cc/hr and Protonix drip ongoing; infusing well. A/W EEG to be done today. Assisted in ADLs. Able to turn self in bed. Falls bundle in place. Pt seen and examined by Neuro this AM, for MRI head w and w/o contrast- MRI staff called; won't be done until Tuesday unless requested as Stat- verified with Dr Saba; can be done on Tuesday. Pt's HR went up to 180-200's, Vfib/Vtach on telemetry; Dr Calle informed; EKG done- NSR- relayed to physician result; With cardiac consult- US called in consult; Dr Calle reviewed telemetry events- to cancel cardiac consult- ordered. Pt seen and examined by Dr Ro- relayed re: maroon smear from last night- to continue observing pt, no plans for scope for now, might be residual bleeding; may progress diet to soft- Pt informed; orders made. Complained of headache, PRN medication given as prescribed. To continue monitoring patient.
[2020-08-16 15:26] VITALS: BP 125/77
[2020-08-16 15:32] VITALS: BP 129/87
[2020-08-16 19:46] VITALS: BP 143/68
--- NOTE | 2020-08-16 20:41 | NUR ---
PT GIVEN TRAMADOL FOR PAIN C/O NAUSEA, DIZZINESS AND BLURRED VISION. 4MG ZOFRAN GIVEN, VSS SEE FLOWSHEET AND ACCUCHECK 105. PT ADVISED NOT TO GET OOB UNASSISTED.
[2020-08-16 23:40] VITALS: BP 123/80
--- NOTE | 2020-08-17 03:23 | NUR ---
PROGRESS PT A/O X4 REPORTS NECK PAIN AT A LEVEL OF 3 DENIES NEED FOR MEDICATION. STILL REPORTING DIZZINESS, SPOKE TO ERICA ROUSSEAU SHE ORDERED AN H&H 2 APRON CLEANER'S, SHALONDA RN FROM ER AND MYSELF ATTEMPTED TO DRAW BLOOD WITHOUT SUCCESS VEINS ACCESSED THEN COLLAPSED. ARMS WRAPPED IN WARM BLANKETS LAB NOTIFIED TO TRY AGAIN. PT PALE AND FATIGUED. SKIN C/D/I. FALL RISK SCORE 70 PT A HIGH FALL RISK YELLOW BAND APPLIED, BED ALARM SET, CALL LIGHT AND PERSONAL ITEMS WITHIN REACH.
[2020-08-17 05:36] LABS: GLYCOHEMOGLOBIN (HGB A1C) 5.7 % (4.8-5.6)
[2020-08-17 05:41] LABS: HEMATOCRIT 31.4 % (42.0-52.0); HEMOGLOBIN 10.1 gm/dL (14.0-18.0)
[2020-08-17 05:48] LABS: CALCIUM 8.6 mg/dL (8.5-10.1); POTASSIUM 3.6 mmol/L (3.5-5.1)
[2020-08-17 07:37] VITALS: BP 127/72
[2020-08-17] MEDS ORDERED: HUMALOG100 UNIT/1 SUBQ (10:16)
[2020-08-17] MEDS ORDERED: BUTALB-ACETAMI1 EACH PO (10:16)
[2020-08-17] MEDS ORDERED: KEPPRA1000 MG PO (10:16)
--- NOTE | 2020-08-17 10:26 | EKG ---
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1960 Requested By: Tha Calle Order Number: [id number] MD: Beck Fields Measurements Intervals [place] Rate: 83 P: 31 NV: 173 QRS: 10 QRSD: 96 T: 34 QT: 363 QTc: 427 Interpretive Statements Sinus rhythm Low voltage, precordial leads Nonspecific ST-T wave changes Early repolarization Compared to ECG 08/06/2020 09:07:35 Sinus tachycardia no longer present Electronically Signed On 08-17-2020 10:26:31 [employer] by Beck Fields [email or web address] <ELECTRONICALLY SIGNED> By: Beck Fields MD 08/17/20 1026 1127 [id number] Beck Fields MD /EPI
--- NOTE | 2020-08-17 10:41 | NUR ---
DR LEON ORDERED ORTO STATIC B/P PT WAS 119/68 LYING SITTING 127/99 NOT ABLE TO STAND ATTEMPTED XS 3 WITH THIS NURSE PRESENT
--- NOTE | 2020-08-17 10:53 | HC ---
[facility] [place] [address] CONSULTATION Name: BARRON ZAFAR JR Room #: 459-P ADM IN M.R.#: [id number] Admission: 08/14/20 Attend Phys: Jimmie Meade MD Discharge: Date of : 62 Report #: [id number] THIS REPORT FOR: cc: Sincere Germain MD, Shyam MD Khosla,Gilberto Strauss MD ~ DATE OF SERVICE: 08/15/2020 HISTORY OF PRESENT ILLNESS: This is a 59-year-old male patient who was evaluated by me for altered mental status. He was admitted with altered mental status. He is a poor historian. I reviewed the record and got a lot of history from the record. This patient has long record in the computer and the record goes as far as back at least 2004. He has numerous workup over a period of time in this patient. They had included multiple CT, MRI of the brain, stroke protocol CT, because he has been admitted with TIA as well as what they described as seizure. At one time, he used to be on Tegretol, but his psychiatrist discontinued it because he wanted to start him on Depakote. He does not think he is on Keppra, but in the hospital, he is on Keppra. He thinks he is on Depakote. He does not know the dose of Depakote. Nurses tried to call the fpc. They cannot get hold of them and find out the dosages, but I told them to look for it because we need to find out how much dosages he is on. He was on valproic acid because his level was 32 when he came in and they did give him 500 mg of Depakote when he came in. REVIEW OF SYSTEMS: Extensive in this patient. He has too long consultation with Dr. Cadena who was a neurologist here in the past. He has a history of anemia and he has a history of GI bleed. He was recently COVID positive, but presently is not on any isolation. He has a history of colitis, syncope, postural hypotension. He was seen by another neurologist recently, Dr. Silva, and he thought his hypotension is his problem. He has a history of PE, diabetes, TIA, chronic neck pain. At one time, he also had cervical radiculopathy, for which he underwent surgery. He has a history of obstructive sleep apnea. That was his relevant 14-point review of system PAST MEDICAL HISTORY: Positive for pulmonary embolism. FAMILY HISTORY: Negative for seizures. SOCIAL HISTORY: He does not drink alcohol. He lives in a fpc. PHYSICAL EXAMINATION: GENERAL: He is alert. He is responsive. He can tell me what month it is, what day it is, what hospital he is in and who the president is. His speech looks intact. His cranial nerve examination 2-12 looks unremark[place] [id number] CONSULTATION Name: BARRON ZAFAR Room #: 459-P [facility] IN ..#: [id number] Admission: 08/14/20 Attend Phys: Jimmie Meade MD Discharge: Date of : 62 Report #: [id number] four extremities and I think his position sense is intact. He did not cooperate that much. His reflexes look diminished. There is no meningeal sign. Tone looks unremarkable. I could not look at the patient's fundus. He is a well-developed individual. He does not have any that deficiency of hearing or vision. His respiration is 18. His pulse is 90, temperature is 97.8. He does not have any edema. His pulses are difficult to tell. Cardiac examinations appear unremarkable. In spite of his history of recent COVID, his breathing looks maintained. At one time, his vitamin D was pretty low at 10. At one time, his homocysteine was high. Because of altered mental status, I did a CT which was mostly unremarkable. He had multiple CTs in the past. IMPRESSION: History of seizure and altered mental status. The patient says he is back to his baseline. As I am dictating this note, the nurse called me and he takes 200 mg of Depakote ER at night. We will put him back on that, but probably check his level again and we may have to readjust his Depakote upward to get it to the therapeutic level. We will leave him on Keppra, but monotherapy should be goal if he has a documented seizure as an outpatient. That needs to be done as an outpatient over a period of time. I will repeat his TSH, vitamin B12, and vitamin D. We will check his Depakote level tomorrow and as mentioned above, may increase his Depakote depending upon the level tomorrow. I think his compliance should be good because he is in a fpc, but we do not know for sure. Dr. Saba will follow up this patient with you from tomorrow for Neurology care. Thank you very much for this referral. <ELECTRONICALLY SIGNED> By: Gilberto Barber MD 08/17/20 1053 1615 20 Gilberto Barber MD /nt
--- NOTE | 2020-08-17 10:53 | EEG ---
[facility] [place] [address] ELECTROENCEPHALOGRAM Name: BARRON ZAFAR Room #: 459-P ADM IN M.R.#: [id number] Admission: 08/14/20 Attend Phys: Jimmie Meade MD Discharge: Date of : 62 Report #: [id number] THIS REPORT FOR: //name// CC: Jimmie Meade [facility] DATE OF SERVICE: 08/16/2020 This patient is being evaluated for the possibility of seizure. EEG was done by placing the electrode by standard 10-20 system of electrode placement. Both the referential and sequential montages were used for recording. Background activity in this patient's EEG is about 8 Hz and 30 microvolts. The patient went to sleep and that is associated with bilateral slowing and vertex sharp waves. Photic stimulation is unremarkable. Throughout the record, no active epileptiform activity was noticed. IMPRESSION: This patient's EEG does not demonstrate any active epileptiform activity. EEG is slow and poorly formed. That is a nonspecific abnormality, which can occur with dementia, encephalopathy, effect of psychotropic medication, etc. Clinical correlation is recommended. <ELECTRONICALLY SIGNED> By: Gilberto Barber MD 08/17/20 1053 1822 01 Gilberto Barber MD /nt
[2020-08-17 16:18] VITALS: BP 126/77
[2020-08-17 20:02] VITALS: BP 119/88
--- NOTE | 2020-08-18 04:48 | NUR ---
ASSUMED CARE OF PT AT 1900HRS. PT AOX3-4 AND LETS NEEDS BE KNOWN. FALL PRECAUTION IN PLACE. SEIZURE PRECAUTION IN PLACE. PT COMPLAINED OF HEADACHE AND DIZZINESS. PRN MEDS PROVIDED FOR HEADACHE. PT RUNS SR ON TELE. PT WAS ABLE TO GET COMFORTABLE AND SLEEP PART OF THE SHIFT. VSS AND NO S/S OF ACUTE DISTRESS. WILL CONTINUE TO MONITOR.
[2020-08-18 07:17] VITALS: BP 136/68
[2020-08-18 10:50] LABS: CALCIUM 8.4 mg/dL (8.5-10.1); CREATININE 0.9 mg/dL (0.7-1.3); POTASSIUM 3.9 mmol/L (3.5-5.1)
--- NOTE | 2020-08-18 12:30 | NUR ---
Received awake on bed. Due medications given as prescribed, able to swallow meds w/o difficulty. On room air. Vital signs stable. On telemetry; no signs and complains of chest pain, crushing sensation and heaviness; running ST at times. On soft fiber restricted diet- tolerating well; no nausea, no vomiting and no abdominal pain noted. On blood sugar monitoring, taken and recorded accordingly; with sliding scale insulin ordered. No IV noted- for re-insertion; difficult stick, paged IV nurse. Continent of bowel and bladder, able to use urinal and uses bedpan at times. Assisted in ADLs. Falls bundle in place. On seizure precautions as well. A/W MRI to be done today- checklist filled up and faxed. To continue monitoring patient. Pt seen and examined by Dr Calle this AM, supposed to discharge pt but decided to observe pt overnight due to recent complains of diziness; Dr Martinez consult called in, called answering service. To continue monitoring patient. Pt seen and examined by PT, patient able to sit on the chair.
--- NOTE | 2020-08-18 14:46 | NUR ---
CARE TEAM INDICATED THAT PT WAS HAVING AN MRI TODAY. CARE TEAM INDICATED PT WILL LIKELY BE MEDICALLY STABLE TO DC BACK TO [facility] TOMORROW. CM NOTIFIED LIAISON. CM TO FOLLOW INDICATED WITH DC PLANNING.
[2020-08-18 16:02] VITALS: BP 89/57
[2020-08-18 20:08] VITALS: BP 127/74
[2020-08-18 23:00] VITALS: BP 127/74
--- NOTE | 2020-08-19 03:54 | NUR ---
ASSESSMENT DOCUMENTED.PT BEEN RESTING IN NO ACUTE DISTRESS.VSS.DENIES ANY NEEDS AT THIS TIME.POSSIBLE DISCHARGE TO NURSING FACILITY TODAY.
[2020-08-19 07:18] VITALS: BP 104/58
[2020-08-19] MEDS ORDERED: MIDODRINE HCL 55 M1 PO (10:29)
--- NOTE | 2020-08-19 10:47 | NUR ---
CARE TEAM INDICATED THAT PT IS MEDICALLY STABLE TO DISCHARGE BACK TO [facility] THIS DAY. VAN TRANSPORT ARRANGED BETWEEN [phone]. PT IS AWARE AND AGREEABLE. CHART COPY MADE. ORDERS FAXED. NURSE GIVEN NUMBER FOR REPORT. NO OTHER CM INTERENTION INDICATED. CASE CLOSED.
--- NOTE | 2020-08-19 11:33 | NUR ---
Received awake on bed. Due medications given as prescribed, able to swallow meds w/o difficulty. On room air. Vital signs stable. On telemetry; no complains and signs of chest pain, crushing sensation and heaviness. Assisted in ADLs. On soft fiber restricted diet- tolerating well; no nausea, no vomiting and no abdominal pain noted. Falls bundle in place. On blood sugar monitoring, taken and recorded accordingly; with sliding scale insulin ordered. Continent of bowel and bladder, able to use bedpan or urinal; checked frequently and changed as needed. With D5 at 125cc/hr, infusing well at R FA- wrapped in coban. Possible discharge today. To continue monitoring patient. Pt seen and examined by Dr Calle- discharge orders made- CM updated; a/w transport to be set up and re: discharge dispostion and instructions.
== END 2020-08-19 13:22 | DRG 177 ==
LOC: ER 16:48 → EROBS 19:34 → 4W 19:34
PROVIDERS: Emergency Medicine; Hospitalist; Nurse Practitioner Family; ADMIT Internal Medicine; ATTEND Internal Medicine
PROC: 30233N1 Transfusion of Nonautologous Red Blood Cells into Peripheral Vein, Percutaneous Approach (ICD-10-PCS; principal; 2020-08-15)
DX: U07.1 COVID-19 (principal); K57.31 Diverticulosis of large intestine without perforation or abscess with bleeding; G93.41 Metabolic encephalopathy; D62 Acute posthemorrhagic anemia; E87.0 Hyperosmolality and hypernatremia; E11.9 Type 2 diabetes mellitus without complications; G89.29 Other chronic pain; M54.2 Cervicalgia; G40.909 Epilepsy, unspecified, not intractable, without status epilepticus; M54.5 Low back pain; I10 Essential (primary) hypertension; J45.909 Unspecified asthma, uncomplicated; D64.9 Anemia, unspecified; E88.09 Other disorders of plasma-protein metabolism, not elsewhere classified; E87.6 Hypokalemia; Z96.651 Presence of right artificial knee joint; E87.8 Other disorders of electrolyte and fluid balance, not elsewhere classified; F25.9 Schizoaffective disorder, unspecified; Z86.73 Personal history of transient ischemic attack (TIA), and cerebral infarction without residual deficits; Z88.2 Allergy status to sulfonamides; Z91.048 Other nonmedicinal substance allergy status; Z86.711 Personal history of pulmonary embolism; Z82.49 Family history of ischemic heart disease and other diseases of the circulatory system; Z79.899 Other long term (current) drug therapy
CPT/HCPCS: 10045

== ENCOUNTER 2021-02-21 01:04 | Emergency (ER) | payer OTHER ==
[~2021-02-21] VITALS: Ht 190.5 cm; Wt 140.6 kg
[~2021-02-21 01:04] MED LIST changes: +ASPIRIN EC325 M1 PO; +BUTALB-ACETAMI1 EACH PO; +CIPRO500 M1 PO; +DEPAKOTE ER500 M1 PO; +DOXYCYCLINE 10100 M2 PO; +DULOXETINE HCL60 MG PO; +KEPPRA1000 MG PO; +LEVEMIR100 UNIT/1 SUBQ; +MIDODRINE HCL 55 M1 PO; +NOVOLOG100 UNIT/1 SUBQ
[2021-02-21] MEDS ORDERED: PREDNISONE 10 M10 M1 PO (02:27)
[2021-02-21] MEDS ORDERED: PERCOCET 5-3251 EACH PO (02:27)
[2021-02-21] MEDS ORDERED: FLEXERIL PO (02:27)
[2021-02-21 03:35] VITALS: BP 114/67
== END 2021-02-21 03:37 | disposition home or self-care (01) ==
LOC: ER 01:04
DX: M54.12 Radiculopathy, cervical region (principal); E11.9 Type 2 diabetes mellitus without complications; J45.909 Unspecified asthma, uncomplicated; I10 Essential (primary) hypertension; Z88.2 Allergy status to sulfonamides; Z79.899 Other long term (current) drug therapy

== ENCOUNTER 2021-05-03 10:51 | Inpatient (IN) | payer OTHER ==
[~2021-05-03] VITALS: Ht 182.9 cm; Wt 150.4 kg
--- NOTE | ~2021-05-03 | EMS ---
[address] [address] EMS Patient Care Report Name: BARRON ZAFAR JR Room #: 459-P ADM IN M.R.#: [id number] Admission: 05/03/21 Attend Phys: Gil Simon MD Discharge: Date of : 62 Report #: [id number] THIS REPORT FOR: //name// Report Transmitted: 05/05/2021 08:52 EMS Care Summary [place], [place]/[facility] Incident [id number] @ 05/03/2021 10:21 Incident Location [address] [place] [address] Patient BARRON ZAFAR Male, 60 Years 1960 Patient Address Patient History None Reported, Patient Allergies No known allergies, Patient Medications None Reported, Chief Complaint Chest pain Disposition Transported No Lights/[place] Dispatch Reason Breathing Problem Transported To [facility] Narrative M42 arrived on scene to find the patient lying supine in his bed. Patient said for the last 2 hours he had been having chest pain and felt short of breath. Patient said he had been to the hospital several times before with similar stuff but never been diagnosed with anything. Patient said he felt nauseous but had not thrown up. Patient denied a cardiac history. En route to the hospital no changes in the patient condition occurred. M42 arrived on scene of the [address] [address] EMS Patient Care Report Name: BARRON ZAFAR JR Room #: 459-P [facility] IN [facility].#: [id number] Admission: 05/03/21 Attend Phys: Gil Simon MD Discharge: Date of : 62 Report #: [id number] hospital and patient care was transferred to the . Initial Vitals @10:38P: 77,R: 16,BP: 151/108,Pain: 4/10,GCS: 15,SpO2: 97,Revised Trauma: 12, @10:36P: 77,R: 16,BP: 151/83,Pain: 4/10,GCS: 15,CO: 0,SpO2: 97,Revised Trauma: 12, Assessments @10:44MENTAL:No Abnormalities,SKIN:No Abnormalities,HEENT:Head/Face: No Abnormalities,Eyes: No Abnormalities,Neck/Airway: No Abnormalities,LUNG SOUNDS:General: No Abnormalities,Left Upper: No Abnormalities,Right Upper: No Abnormalities,Left Lower: No Abnormalities,Right Lower: No Abnormalities,ABDOMEN:General: No Abnormalities,Left Upper: No Abnormalities,Right Upper: No Abnormalities,Left Lower: No Abnormalities,Right Lower: No Abnormalities,PELVIS//GI:No Abnormalities,EXTREMITIES:Left Arm: No Abnormalities,Right Arm: No Abnormalities,Left Leg: No Abnormalities,Right Leg: No Abnormalities,PULSE:NEURO:No Abnormalities,@10:44MENTAL:No Abnormalities,SKIN:No Abnormalities,HEENT:Head/Face: No Abnormalities,Eyes: No Abnormalities,Neck/Airway: No Abnormalities,LUNG SOUNDS:General: No Abnormalities,Left Upper: No Abnormalities,Right Upper: No Abnormalities,Left Lower: No Abnormalities,Right Lower: No Abnormalities,ABDOMEN:General: No Abnormalities,Left Upper: No Abnormalities,Right Upper: No Abnormalities,Left Lower: No Abnormalities,Right Lower: No Abnormalities,PELVIS//GI:No Abnormalities,EXTREMITIES:Left Arm: No Abnormalities,Right Arm: No Abnormalities,Left Leg: No Abnormalities,Right Leg: No Abnormalities,PULSE:NEURO:No Abnormalities, Impression Chest Pain / Discomfort Procedures @10:3612-Lead ECG@10:43ALS AssessmentResponse: UnchangedSucceeded Timeline 10:20,Call Received 10:20,Dispatch Notified 10:21,Dispatched 10:23,En Route 10:29,On Scene 10:30,At Patient 10:36,12-Lead ECG, 10:36,BP: 151/83 M,PULSE: 77,RR: 16 R,SPO2: 97 Ox,ETCO2: ,BG: ,PAIN: 4,GCS: 15, 10:38,BP: 151/108 M,PULSE: 77,RR: 16 R,SPO2: 97 Ox,ETCO2: ,BG: ,PAIN: 4,GCS: 15, 10:39,Depart Scene 10:43,ALS Assessment,Response: UnchangedSucceeded, [facility] [address] [place] [address] EMS Patient Care Report Name: ZAFARBARRON Room #: 459-P ADM IN M.R.#: [id number] Admission: 05/03/21 Attend Phys: Gil Simon MD Discharge: Date of : 62 Report #: [id number] 10:48,At Destination 11:03,Call Closed Disclaimer v1.1 Copyright 2020 [employer] This EMS Care Summary contains data elements from the applicable legal record (which may be displayed differently). It is designed to provide pertinent information for the following purposes: continuity of care, clinical quality, and state data reporting. The complete legal record is available to ED staff and administrators of the receiving hospital in [employer] Patient Tracker. All data is provided "as is."
[2021-05-03 10:51] VITALS: BP 139/83
[~2021-05-03 10:51] MED LIST changes: +PERCOCET 5-3251 EACH PO; +PREDNISONE 10 M10 M1 PO
[2021-05-03 11:19] LABS: ABSOLUTE NEUTROPHILS 4.4 thou/uL (1.4-8.2); BASOPHILS 0.5 % (0.0-2.0); EOSINOPHILS 1.4 % (0.0-3.0); HEMATOCRIT 39.9 % (42.0-52.0); HEMOGLOBIN 13.1 gm/dL (14.0-18.0); MCH 28.3 pg (26.0-34.0); MCV 85.8 fL (80.0-100.0); MONOCYTES 12.1 % (1.0-8.0); PLATELET COUNT 220 thou/uL (150-400); RBC 4.64 mil/uL (4.50-6.00); RDW 18.1 % (10.5-14.5); WBC 6.4 thou/uL (4.0-11.0)
[2021-05-03 11:31] LABS: ANION GAP 12 mmol/L (7-16); BUN 11 mg/dL (7-18); CHLORIDE 107 mmol/L (98-107); CO2 23 mmol/L (21-32); CREATININE 1.1 mg/dL (0.7-1.3); GLUCOSE 142 mg/dL (74-106); POTASSIUM 4.3 mmol/L (3.5-5.1); SODIUM 142 mmol/L (136-145)
[2021-05-03 11:40] LABS: SGOT 14 U/L (15-37); SGPT 13 U/L (16-63); TOTAL BILIRUBIN 0.4 mg/dL (0.2-1.0); TOTAL PROTEIN 6.5 g/dL (6.4-8.2); TROPONIN-I <0.06 ng/mL (<0.06)
[2021-05-03 11:49] LABS: ANISOCYTOSIS 1+
[2021-05-03 13:51] LABS: APTT 24.1 Seconds (24.5-32.8); INR 0.99; PROTIME 10.8 Seconds (10.5-12.1)
[2021-05-03 17:55] VITALS: BP 136/76
[2021-05-03 18:10] VITALS: BP 157/85
[2021-05-03 19:54] VITALS: BP 139/78
--- NOTE | 2021-05-04 03:38 | NUR ---
ASSUMED PT CARE AT 1900.ADMISSION HX,EDUCATION AND ASSESSMENT COMPLETED.PT C/O NON CARDIAC CHEST PAIN,MANAGED WITH MED.PT CONCERNED ABOUT WEAKNESS TO L SIDE,STATED THAT IT HAS GOTTEN WORSE SINCE PAIN STARTED.PREPRESS TECHNICIAN ON DUTY AWARE.LAB CALLED TO CONFIRM TIME FOR THE NEXT TROPONIN,PREPRESS TECHNICIAN ON DUTY STATED THAT IT CAN BE PEPEATED DURING MORNING RUN.URINAL AT BEDSIDE WITH DARK YELLOW URINE NOTED.PT IS FULLY VACCINATED.PT SLEEPING ON HIS BED AT THIS TIME.PT WITH HX OF SEIZURE. FALL AND SEIZURE PRECAUTIONS IN PLACE.CALL LIGHT WITHIN REACH.
[2021-05-04 04:50] LABS: HEMATOCRIT 38.3 % (42.0-52.0); HEMOGLOBIN 12.7 gm/dL (14.0-18.0); MCH 28.5 pg (26.0-34.0); MCHC 33.1 g/dL (28.0-37.0); RBC 4.45 mil/uL (4.50-6.00); WBC 8.8 thou/uL (4.0-11.0)
[2021-05-04 05:16] LABS: CALCIUM 8.8 mg/dL (8.5-10.1); CREATININE 1.2 mg/dL (0.7-1.3)
[2021-05-04 06:13] VITALS: BP 123/66
--- NOTE | 2021-05-04 07:27 | EKG ---
[address] [place] [address] ELECTROCARDIOGRAM REPORT Name: KARLA ZAFARAKOSUA Paige Room #: 459-P [facility] IN ..#: [id number] Admission: 05/03/21 Attend Phys: Gil Simon MD Discharge: Date of : 62 Report #: [id number] [facility] ED Test Date: 2021-05-03 Test Time: 10:50:37 Pat Name: BARRON ZAFAR Department: Room: [facility] Gender: M Ropeman: ANDREW : 1960 Requested By: Daniel Romo Order Number: [id number] MD: Jose E Rivas Measurements Intervals [place] Rate: 74 P: 46 WI: 162 QRS: 39 QRSD: 83 T: 48 QT: 375 QTc: 416 Interpretive Statements Sinus rhythm Low voltage, precordial leads Compared to ECG 08/16/2020 11:27:43 ST (T wave) deviation no longer present Early repolarization no longer present Electronically Signed On 05-04-2021 7:27:05 CDT by JoseE Rivas [email or web address] <ELECTRONICALLY SIGNED> By: Jose E Rivas MD, [facility] 08/726 105 1050 Jose E Rivas MD, [facility] /EPI
[2021-05-04 07:35] VITALS: BP 145/120
[2021-05-04 07:36] VITALS: BP 127/82
--- NOTE | 2021-05-04 14:59 | 2DMMODE ---
[facility] [place] [address] 2 D/M-MODE ECHOCARDIOGRAM Name: ZAFARBARRON Room #: 459-P ADM IN M.R.#: [id number] Admission: 05/03/21 Attend Phys: Gil Simon MD Discharge: Date of : 62 Report #: [id number] THIS REPORT FOR: cc: Sincere Germain MD, Shyam MD Park, Jin S. MD ~ APPROVED REPORT Study performed: 05/04/2021 10:00:34 EXAM: Comprehensive 2D, Doppler, and color-flow Echocardiogram Patient Location: Bedside Room #: 459 Status: routine BSA: 2.64 HR: 75 bpm BP: 127/82 mmHg Rhythm: NSR Other Information Study Quality: Good Indications Diabetes Chest Pain 2D Dimensions IVSd: 10.78 (7-11mm) LVOT Diam: 25.75 (18-24mm) LVDd: 49.84 mm PWd: 9.31 (7-11mm) Ascending Ao: 38.90 (22-36mm) LVDs: 34.41 (25-40mm) Left Atrium: 37.99 (27-40mm) Aortic Root: 32.22 mm Aortic Valve AoV Peak Blayne.: 0.90 m/s AO Peak Gr.: 3.21 mmHg LVOT Max P.33 mmHg LVOT Max V: 0.91 m/s DOMINIC Vmax: 5.30 cm2 Mitral Valve E/A Ratio: 0.8 MV Decel. Time: 352.85 ms MV E Max Blayne.: 0.39 m/s [facility] [address] [place] [address] 2 D/M-MODE ECHOCARDIOGRAM Name: BARRON ZAFAR Room #: 459-P [facility] IN [facility]#: [id number] Admission: 05/03/21 Attend Phys: Gil Simon MD Discharge: Date of : 62 Report #: [id number] MV A Blayne.: 0.51 m/s MV PHT: 102.33 ms IVRT: 110.73 ms Pulmonary Valve PV Peak Blayne.: 1.05 m/s PV Peak Gr.: 4.42 mmHg Pulmonary Vein P Vein S: 0.32 m/s P Vein A: 0.20 m/s P Vein D: 0.26 m/s P Vein A Dur.: 92.3 msec P Vein S/D Ratio: 1.23 Left Ventricle The left ventricle is normal size. There is normal LV segmental wall motion. There is normal left ventricular wall thickness. Left ventricular systolic function is normal. The left ventricular ejection fraction is within the normal range. LVEF is 55-60%. Grade I - abnormal relaxation pattern. Right Ventricle The right ventricle is normal size. The right ventricular systolic function is normal. Atria The left atrium size is normal. The right atrium size is normal. Aortic Valve The aortic valve is normal in structure. No aortic regurgitation is present. There is no aortic valvular stenosis. Mitral Valve The mitral valve is normal in structure. There is no mitral valve regurgitation noted. No evidence of mitral valve stenosis. Tricuspid Valve The tricuspid valve is normal in structure. There is no tricuspid valve regurgitation noted. Pulmonic Valve The pulmonary valve is normal in structure. There is no pulmonic valvular regurgitation. Great Vessels The aortic root is normal in size. IVC is normal in size and collapses >50% with inspiration. [facility] [address] [place] [address] 2 D/M-MODE ECHOCARDIOGRAM Name: ANDRADEBARRON B Room #: 459-P [facility] IN M.R.#: [id number] Admission: 05/03/21 Attend Phys: Gil Simon MD Discharge: Date of : 62 Report #: [id number] Pericardium There is no pericardial effusion. <Conclusion> The left ventricle is normal size. There is normal left ventricular wall thickness. Left ventricular systolic function is normal. Grade I - abnormal relaxation pattern. The right ventricle is normal size. The left atrium size is normal. The aortic valve is normal in structure. There is no mitral valve regurgitation noted. <ELECTRONICALLY SIGNED> By: Dallas Castillo MD 05/04/21 1459 1459 1459 Dallas Castillo MD /LADAN
[2021-05-04 19:52] VITALS: BP 113/87
[2021-05-05 00:22] VITALS: BP 109/73
--- NOTE | 2021-05-05 04:53 | NUR ---
patient aox4 makes needs known. pain controlled this shift. patient c/o not able to lift his left arm. patient has a flat affect.fall precaution in place. patient in bed asleep at this time breathing regular ans unlaboured.
[2021-05-05 07:34] VITALS: BP 137/85
--- NOTE | 2021-05-05 12:36 | NUR ---
FAXED CLINICAL UPDATES AND NEGATIVE COVID RESULT (05/03/21) TO [facility]. WILL CONFIRM WITH FLORENTINO/LIAISON THAT THEY RECEIVED. [facility] P [phone]; FAX [phone]; M [phone]
--- NOTE | 2021-05-05 13:36 | NUR ---
Pt is AXOX4 depressed. C/o chest pain. Tele running radha sinus at 101bpm. He doesn't want to do anything. Refused to participate in stress test stating he had to much chest pain. He is not eating. New IV started in left forearm. Lungs diminished. Bowel sounds hypoactive. Bed in low position. Call light within reach.
[2021-05-05 15:11] VITALS: BP 126/74
--- NOTE | 2021-05-05 15:11 | NUR ---
PT ADMITTED RELATED TO CHEST PAIN, LEFT HEMIPLEGIA, AND STROKE EVAL. CM REVIWED CHART AND SPOKE WITH CARE TEAM. PT IS FROM LTC AT [facility]. CM MET WITH PT AT BEDSIDE THIS DAY PT APPEARS TO BE A&O X4. CM ROLE INTRODUCED. 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 PT INDICATED THAT HE DOESN'T HAVE ANY CONTACTS. PT INDICATED HE PLANS TO RETURN TO [facility] ONCE MEDICALLY STABLE. CLINICAL UPDATE SENT TO THE FACILITY. PT WAS TO HAVE AN MRI THIS DAY. CM FOLLOWING REGARDING DC PLANNING.
--- NOTE | 2021-05-05 19:05 | NUR ---
Pt admitted from ED at 1530. Having chest pain level 10 described as tight and heavy pressure. Running NSR on telemetry. Heart sounds are normal. Pulse tachy at 90. Want to observe pt overnight and watch BP and control pain. No BN today. Bowel sounds present. Lung sounds diminished. Bed in low position. Call light within reach.
[2021-05-05 20:15] VITALS: BP 111/57
--- NOTE | 2021-05-06 02:18 | NUR ---
PT CARE ASSUMED WITH PT IN BED WATCHING TV.PT IS A/O X4.PT IS UP WITH ASSIST.PT IS ON ROOM AIR.PT STATES PAIN IMPROVED WITH TORADOL.PT USES A URINAL TO VOID.PT TAKE MEDS WHOLE WITH NO ISSUES.SEIZURE PRECAUTION IN PLACE.WILL CONTINUE TO MONITOR PER POC
[2021-05-06 08:05] VITALS: BP 123/61
--- NOTE | 2021-05-06 12:22 | HC ---
[facility] [place] [address] CONSULTATION Name: BARRON ZAFAR Room #: 459-P ADM IN M.R.#: [id number] Admission: 05/03/21 Attend Phys: Gil Simon MD Discharge: Date of : 62 Report #: [id number] THIS REPORT FOR: cc: Sincere Germain MD, Shyam MD Khosla,Gilberto Strauss MD ~ DATE OF SERVICE: 05/04/2021 HISTORY OF PRESENT ILLNESS: This 60-year-old male patient was evaluated by me for a seizure and stroke. He is a poor historian. To most of the questions, he says he does not know. He was admitted with chest pain, but he has history of strokes. He was in [facility] and he estimates the stroke was about 3-4 years ago and they were more than 1 stroke. He does not know why he had strokes at that time and according to him, he did not tell him. At this time, he is admitted with stroke. REVIEW OF SYSTEMS: He says that he had seizures in the past, but he has not had seizure for 2-3 years. He says he used to be on Tegretol, but then he stopped taking Tegretol because he was not having any seizure, but the record indicates he is on a combination of Keppra and Depakote. He does not know anything about that, how long he has been on that. It does look like he has a history of multiple problems of diabetes, hypertension, hypercholesterolemia, history of CVA with weakness in the left arm. He has generalized weakness. He is not able to move his left upper extremity at all now, but before that he was able to move the left upper extremity. He moves his lower extremities reasonably well, but he says he has difficulty walking. He has some joint pain. This is the relevant 14-point review of systems PAST MEDICAL HISTORY: Positive for stroke, but no record is available. FAMILY HISTORY: Negative for early age stroke. SOCIAL HISTORY: He does not smoke. PHYSICAL EXAMINATION: The patient's examination indicate he is alert. He is responsive. His memory is poor, but I do not know what his baseline is. His speech looks intact. His cranial nerve examination 2-12 is difficult to tell, especially for hemianopsia. I do not see any marked facial asymmetry, but he does not move his left upper extremity at all. Both lower extremity, he moves reasonably well. His position sense is intact. His reflexes are diminished. His plantars were mute. There is no meningeal sign. There is no carotid bruit. He is an obese individual. His hearing and vision looks adequate. Pulses are difficult to tell in this patient. There is no edema. There are no thyroid mass. There is no carotid bruit. Cardiac examinations appear unremarkable. No respiratory difficulty was noticed. This patient used to be on Coumadin at one time, but he said that was for DVT and subsequently it was stopped. [address] [address] CONSULTATION Name: BARRON ZAFAR JR Room #: 459-P [facility] IN .R.#: [id number] Admission: 05/03/21 Attend Phys: Gil Simon MD Discharge: Date of : 62 Report #: [id number] LABORATORY DATA: He had a CT scan of the head done, which does not show any acute abnormality. IMPRESSION AND PLAN: By history his weakness on the left upper extremity has progressed. On my examination, he does not move the left upper extremity at all. He is way outside the window for doing any intervention. He thinks it may have started yesterday at 8:00. I am going to get an MRI done on him as the first test. Depending upon that, he may need further testing and may need even MRI of the C-spine to make sure there is no C-spine pathology, which is causing his symptoms. I do not know what the etiology of his stroke was. He does have multiple vascular risk factors, but he is pretty young and that question may have to be addressed depending upon what the MRI shows. Thank you very much for this referral and I discussed all of it with the patient in detail. <ELECTRONICALLY SIGNED> By: Gilberto Barber MD 05/06/21 1222 1847 0000 Gilberto Barber MD /nt
[2021-05-06 15:25] VITALS: BP 120/60
--- NOTE | 2021-05-06 15:50 | NUR ---
THIS AM PHYSICIAN INDICATED THAT PT WOULD LIKELY BE MEDICALLY STABLE TO DC BACK TO [facility] THIS DAY. PHYSICIAN INDICATED NO DC THIS AFTERNOON THAT WE WERE AWAITING CARDIOLOGY CLEARANCE. CM HAD NOTIFIED [facility] OF POSSIBL EDC AND INFORMED THEM OF ANTICAPTED DC TOMORROW. CM FOLLOWING REGARGING DC PLANNING.
[2021-05-06 19:31] VITALS: BP 141/74
--- NOTE | 2021-05-07 02:47 | NUR ---
PT CARE ASSUMED WITH PT IN BED SLEEPING.PT IS A/O X4.PT IS UP WITH X1 ASSIST AND USES THE URINAL TO VOID.PT TAKE MEDS WHOLE WITH NO ISSUES.PT HAS SOME WEAKNESS ON LT HAND.PT IS ON ROOM AIR.PT IS ACCUCHECK.WILL CONTINUE TO MONITOR
[2021-05-07 08:25] VITALS: BP 106/70
--- NOTE | 2021-05-07 11:42 | NUR ---
Assumed pt care at 7am.Pt in bed resting without c/o. Assessment completed. vss.Pt went for us lower extremity early this am and returned some minutes later for breakfast.Am meds given given and well tolerated.No c/o pain or any discomfort at present.Will continue to monitor.
[2021-05-07] MEDS ORDERED: PROTONIX40 M2 PO (11:50)
--- NOTE | 2021-05-07 14:02 | NUR ---
CARE TEAM INDICATED THAT PT IS MEDICALLY STABLE TO DC BACK TO [facility] THIS DAY. CHART COPY MADE. ORDERS FAXED. [facility] TRANSPORT ARRANGED FOR [phone] THIS DAY. CM NOTIFIED PT AND HE IS AWARE AND AGREEABLE. NURSE TO CALL REPORT TO FACILITY. NO OTHER CM INTERVENTION INDICATED. CASE CLOSED.
[2021-05-07 14:35] VITALS: BP 106/54
--- NOTE | 2021-05-13 08:44 | HC ---
[facility] [address] [place] [address] CONSULTATION Name: BARRON ZAFAR JR Room #: 459-P [facility] IN M.R.#: [id number] Admission: 05/03/21 Attend Phys: Gil Simon MD Discharge: 05/07/21 Date of : 62 Report #: [id number] THIS REPORT FOR: cc: Sincere Germain MD, Shyam MD Park,Dallas Miles MD ~ DATE OF SERVICE: 05/03/2021 CARDIOLOGY CONSULTATION. INDICATION: Chest pain. HISTORY OF PRESENT ILLNESS: This is a 60-year-old gentleman with a past medical history significant for seizures, diabetes mellitus, hypotension, hypercholesterolemia, CVA, general debility, presenting with chest pain. He is a resident of [facility]. This morning, he woke up with substernal chest pain, nonradiating. He is mildly distressed, but denies any symptoms of diaphoresis or dyspnea. The pain is nonradiating and exacerbates with movement of his trunk. It is reproducible with palpation over the area. He denies any recent fever or chills. PAST MEDICAL HISTORY: Diabetes mellitus, hypotension, hypercholesterolemia, history of CVA, general debility, unable to ambulate on his own of unclear etiology. He has been essentially wheelchair bound, although he denies any specific lower extremity abnormalities. ALLERGIES: SULFA AND TAPE. MEDICATIONS: Include allopurinol, atorvastatin 80 mg daily, clonazepam, insulin, metformin, Keppra, meclizine, midodrine once a day, omeprazole, Symbicort. SOCIAL HISTORY: Negative for tobacco use, resides in a penitentiary facility. FAMILY HISTORY: Noncontributory. REVIEW OF SYSTEMS: A full 10-point review of systems performed. Only the pertinent positives and negatives are described in the HPI. PHYSICAL EXAMINATION: VITAL SIGNS: Blood pressure 150/80, heart rate is 78 beats per minute. GENERAL APPEARANCE: An overweight male in no acute distress. HEENT: Normocephalic, atraumatic. NECK: Supple. LUNGS: Clear to auscultation. [facility] [address] [place] [address] CONSULTATION Name: BARRON ZAFAR Royal Room #: 459-P [facility] IN [facility].#: [id number] Admission: 05/03/21 Attend Phys: Gil Simon MD Discharge: 05/07/21 Date of : 62 Report #: [id number] CARDIAC: Regular rate and rhythm, S1, S2 positive. ABDOMEN: Soft, nontender. EXTREMITIES: Trace edema, no cyanosis. LABORATORY DATA: Troponin is negative x 2. ECG reveals sinus rhythm, low voltage. ASSESSMENT AND PLAN: 1. Chest pain syndrome. The differential diagnosis includes ischemia, musculoskeletal, GI, etc. The symptoms have atypical features, worse with movement of his trunk. However, he does have significant risk factors and we will proceed with noninvasive stress testing. 2. Dyspnea on exertion, reports shortness of breath with walking short distances. This is the reason why he is wheelchair bound. We will proceed with echocardiogram to rule out structural heart disease. 3. Diabetes mellitus, continue insulin and check fingersticks. 4. Seizure disorder, continue with medications. 5. Hypercholesterolemia, continue Lipitor. <ELECTRONICALLY SIGNED> By: Dallas Castillo MD 05/13/21 0844 1802 [id number] Dallas Castillo MD /nt
== END 2021-05-07 17:13 | DRG 392 ==
LOC: ER 10:51 → 4W 15:28 → EROBS 15:28 → 4W 18:15
PROVIDERS: Emergency Medicine; ADMIT Hospitalist; ATTEND Hospitalist
DX: K21.9 Gastro-esophageal reflux disease without esophagitis (principal); Z68.42 Body mass index [BMI] 45.0-49.9, adult; E11.9 Type 2 diabetes mellitus without complications; G89.29 Other chronic pain; M54.2 Cervicalgia; I10 Essential (primary) hypertension; J45.909 Unspecified asthma, uncomplicated; M54.5 Low back pain; E78.00 Pure hypercholesterolemia, unspecified; G40.909 Epilepsy, unspecified, not intractable, without status epilepticus; Z20.822 Contact with and (suspected) exposure to COVID-19; E66.9 Obesity, unspecified; G47.33 Obstructive sleep apnea (adult) (pediatric); Z79.899 Other long term (current) drug therapy; Z86.73 Personal history of transient ischemic attack (TIA), and cerebral infarction without residual deficits; Z86.16 Personal history of COVID-19; Z88.2 Allergy status to sulfonamides
CPT/HCPCS: 10045

== ENCOUNTER 2021-05-26 21:30 | Emergency (ER) | payer OTHER ==
[~2021-05-26] VITALS: Ht 190.5 cm; Wt 147.4 kg
--- NOTE | ~2021-05-26 | EMS ---
[facility] [address] [place] [address] EMS Patient Care Report Name: BARRON ZAFAR Room #: DEP SUSAN Alas#: [id number] Admission: 05/26/21 Attend Phys: Discharge: 05/27/21 Date of : 62 Report #: [id number] THIS REPORT FOR: //name// Report Transmitted: 05/27/2021 12:23 EMS Care Summary [place], [place]/[facility] Incident [id number] @ 05/26/2021 20:40 Incident Location [id number] [place] [address] Patient BARRON ZAFAR Male, 60 Years 1960 Patient Address [id number] [place] [address] Patient History None Reported, Patient Allergies No known allergies, Patient Medications None Reported, Chief Complaint NECK AND BACK PAIN Disposition Transported No Lights/[place] Dispatch Reason Falls Transported To [facility] Narrative FD MEDIC 35 DISPATCHED TO A FALL AT A SKILLED NURSING. PT WAS COMPLAINING OF NECK AND BACK PAIN. PT WAS IN A C-COLLAR ON ARRIVAL. PT WAS PLACED ON AFSHAN CASHIER GAMBLING AND PLACED ON THE STRETCHER. PT WAS THEN TAKEN TO THE AMBULANCE WHERE [facility] [address] [place] [address] EMS Patient Care Report Name: BARRON ZAFAR JR Room #: DEP Evette#: [id number] Admission: 05/26/21 Attend Phys: Discharge: 05/27/21 Date of : 62 Report #: [id number] VITALS WERE OBTAINED. PT WAS TRANSPORTED TO [facility] ED. PT CARE WAS TRANSFERRED TO ED NURSING STAFF. MEDIC 35 RETURNED TO SERVICE. Initial Vitals @21:04P: 74,R: 14,BP: 154/93,Pain: 10/10,GCS: 15,SpO2: 99,Revised Trauma: 12, Assessments @21:13MENTAL:Person Oriented,Event Oriented,Time Oriented,Place Oriented,SKIN:HEENT:LUNG SOUNDS:ABDOMEN:PELVIS//GI:EXTREMITIES:PULSE:NEURO: Impression Back Pain Procedures @21:12ALS AssessmentResponse: UnchangedSucceeded@21:14Spinal Motion RestrictionResponse: UnchangedSucceeded Timeline 20:39,Call Received 20:39,Dispatch Notified 20:40,Dispatched 20:41,En Route 20:58,On Scene 20:59,At Patient 21:04,BP: 154/93 M,PULSE: 74,RR: 14 R,SPO2: 99 Ox,ETCO2: ,BG: ,PAIN: 10,GCS: 15, 21:09,Depart Scene 21:12,ALS Assessment,Response: UnchangedSucceeded, 21:14,Spinal Motion Restriction,Response: UnchangedSucceeded, 21:26,At Destination 21:49,Call Closed Disclaimer v1.1 Copyright 2020 [employer] This EMS Care Summary contains data elements from the applicable legal record (which may be displayed differently). It is designed to provide pertinent information for the following purposes: continuity of care, clinical quality, and state data reporting. The complete legal record is available to ED staff and administrators of the receiving hospital in [facility]'s Patient Tracker. All data is provided "as is."
[~2021-05-26 21:30] MED LIST changes: +PROTONIX40 M2 PO
[2021-05-26 23:25] LABS: ABSOLUTE NEUTROPHILS 5.1 thou/uL (1.4-8.2); BASOPHILS 0.6 % (0.0-2.0); EOSINOPHILS 1.5 % (0.0-3.0); HEMATOCRIT 43.1 % (42.0-52.0); HEMOGLOBIN 13.7 gm/dL (14.0-18.0); LYMPHOCYTES 20.3 % (24.0-44.0); MCH 28.1 pg (26.0-34.0); MCHC 31.8 g/dL (28.0-37.0); MCV 88.3 fL (80.0-100.0); MONOCYTES 14.9 % (1.0-8.0); PLATELET COUNT 33 thou/uL (150-400); POLYS 62.7 % (36.0-66.0); RBC 4.88 mil/uL (4.50-6.00); RDW 17.3 % (10.5-14.5); WBC 8.1 thou/uL (4.0-11.0)
[2021-05-26 23:35] LABS: CALCIUM 8.9 mg/dL (8.5-10.1); POTASSIUM 4.6 mmol/L (3.5-5.1)
[2021-05-27 00:15] VITALS: BP 162/101
--- NOTE | 2021-05-27 08:29 | EKG ---
[address] [place] [address] ELECTROCARDIOGRAM REPORT Name: ZAFARBARRON [id number] Admission: 05/26/21 Attend Phys: Discharge: 05/27/21 Date of : 62 Report #: [id number] [facility] ED Test Date: 2021-05-26 Test Time: 23:41:14 Pat Name: BARRON ZAFAR Department: Room: Gender: Dray Driver: YESI : 1960 Requested By: Farooq Alcantara Order Number: [id number] MD: Natalio Urias Measurements Intervals [place] Rate: 61 P: 36 MT: 159 QRS: -3 QRSD: 95 T: 53 QT: 401 QTc: 404 Interpretive Statements Sinus arrhythmia Normal tracing Compared to ECG 05/03/2021 10:50:37 No significant change was found Electronically Signed On 05-27-2021 8:29:11 CDT by Natalio Urias [email or web address] <ELECTRONICALLY SIGNED> By: Natalio Urias MD, [facility] 05/27/21 0829 [id number] [id number] Natalio Urias MD, FACC /EPI
== END 2021-05-27 01:15 | disposition home or self-care (01) ==
LOC: ER 21:30
PROVIDERS: Emergency Medicine
DX: M54.5 Low back pain (principal); I10 Essential (primary) hypertension; E11.9 Type 2 diabetes mellitus without complications; F20.9 Schizophrenia, unspecified; J45.909 Unspecified asthma, uncomplicated; Z79.899 Other long term (current) drug therapy; Z88.2 Allergy status to sulfonamides; Z91.048 Other nonmedicinal substance allergy status

== ENCOUNTER 2021-06-02 13:19 | Emergency (ER) | payer OTHER ==
[~2021-06-02] VITALS: Ht 190.5 cm; Wt 145.2 kg
--- NOTE | ~2021-06-02 | EMS ---
[facility] [address] [place] [address] EMS Patient Care Report Name: BARRON ZAFAR Room #: DEP SUSAN Alas#: [id number] Admission: 06/02/21 Attend Phys: Discharge: 06/02/21 Date of : 62 Report #: [id number] THIS REPORT FOR: //name// Report Transmitted: 06/04/2021 14:51 EMS Care Summary [place], [place]/[facility] Incident [id number] @ 06/02/2021 12:19 Incident Location [address] [place] [address] Patient BARRON ZAFAR Male, 60 Years 1960 Patient Address [address] [place] [address] Patient History Asthma,Diabetes,Hypertension (HTN),Stroke/CVA,Hyperlipidemia,Gastro-Esophageal Reflux Disease (GERD),Irritable Bowel Syndrome,Gout,Chronic Pain,Hypotension,Schizoaffective Disorder,Dysphagia,Sleep Apnea,Pulmonary Embolism, Patient Allergies Sulfa,Adhesive Tape, Patient Medications Allopurinol, Divalproex Sodium, Zolpidem, Percocet, Symbicort, Imitrex, Midodrine, Keppra, Duloxetine, Ventolin, Clonazepam, Invega, Atorvastatin, Cyanocobalamin Co57, Acetaminophen, Humalog, Protonix, Chief Complaint SI Disposition Transported No Lights/[place] Dispatch Reason Psychiatric Problem/Abnormal Behavior/Suicide Attempt Transported To [facility] [address] [place] [address] EMS Patient Care Report Name: BARRON ZAFAR [facility] [id number] Admission: 06/02/21 Attend Phys: Discharge: 06/02/21 Date of : 62 Report #: [id number] Narrative THE PATIENT WAS FOUND SITTING IN THE MOTORIZED WHEELCHAIR AT THE LONGTERM WITH STAFF AND POLICE ON THE SCENE. THE POLICE STATE THE PATIENT HAS BEEN FEELING SUICIDAL SINCE HIS SISTER AROUND TO BEGINNING OF APRIL. THE PATIENT HAS A PLAN TO HANG HIMSELF. THE PATIENT IS ALERT AND ORIENTED x4 AND DENIES ANY OTHER COMPLAINTS. NO CHANGES IN THE PATIENT'S CONDITION DURING TRANSPORT. THE PATIENT WAS MOVED TO BED 7 AT THE [facility] ER AND LEFT WITH THE SIDE RAILS UP AND LOCKED. CARE WAS TRANSFERRED TO THE ER NURSING STAFF. Initial Vitals @12:56P: 110,R: 18,BP: 92/60,Pain: 0/10,GCS: 15,SpO2: 96,Revised Trauma: 12, @13:03P: 112,R: 18,BP: 108/70,Pain: 0/10,GCS: 15,Glucose: 151,Revised Trauma: 12, Assessments @12:52MENTAL:No Abnormalities,SKIN:No Abnormalities,HEENT:Head/Face: No Abnormalities,Eyes: No Abnormalities,Neck/Airway: No Abnormalities,LUNG SOUNDS:General: No Abnormalities,Left Upper: No Abnormalities,Right Upper: No Abnormalities,Left Lower: No Abnormalities,Right Lower: No Abnormalities,ABDOMEN:General: No Abnormalities,Left Upper: No Abnormalities,Right Upper: No Abnormalities,Left Lower: No Abnormalities,Right Lower: No Abnormalities,PELVIS//GI:No Abnormalities,EXTREMITIES:Left Arm: No Abnormalities,Right Arm: No Abnormalities,Left Leg: No Abnormalities,Right Leg: No Abnormalities,PULSE:NEURO:No Abnormalities, Impression Suicidal Ideation Procedures @12:52ALS AssessmentResponse: Unchanged@13:00Saline Lock 6cc (20 ga) Site: Antecubital-LeftResponse: UnchangedSucceeded Timeline 12:17,Call Received 12:17,Dispatch Notified 12:19,Dispatched 12:20,En Route 12:49,On Scene 12:52,At Patient 12:52,ALS Assessment,Response: Unchanged 12:56,BP: 92/60 M,PULSE: 110,RR: 18 R,SPO2: 96 Ox,ETCO2: ,BG: ,PAIN: 0,GCS: 15, 13:00,Saline Lock 6cc 20 ga Site: Antecubital-Left,Response: UnchangedSucceeded, 13:03,BP: 108/70 M,PULSE: 112,RR: 18 R,SPO2: Ox,ETCO2: ,B,PAIN: 0,GCS: 15, 13:05,Depart Scene [address] [address] EMS Patient Care Report Name: BARRON ZAFAR Room #: [facility] Evette#: [id number] Admission: 06/02/21 Attend Phys: Discharge: 06/02/21 Date of : 62 Report #: [id number] 13:14,At Destination 13:32,Call Closed Disclaimer v1.1 Copyright 2020 [employer] This EMS Care Summary contains data elements from the applicable legal record (which may be displayed differently). It is designed to provide pertinent information for the following purposes: continuity of care, clinical quality, and state data reporting. The complete legal record is available to ED staff and administrators of the receiving hospital in [employer]'s Patient Tracker. All data is provided "as is."
[~2021-06-02 13:19] MED LIST changes: -CLONAZEPAM2 MG PO; +KLONOPIN1 MG PO; +LIPITOR80 MG PO
[2021-06-02 14:02] LABS: ABSOLUTE NEUTROPHILS 5.2 thou/uL (1.4-8.2); BASOPHILS 0.8 % (0.0-2.0); EOSINOPHILS 0.9 % (0.0-3.0); HEMATOCRIT 40.4 % (42.0-52.0); HEMOGLOBIN 12.8 gm/dL (14.0-18.0); LYMPHOCYTES 19.8 % (24.0-44.0); MCH 27.6 pg (26.0-34.0); MCHC 31.7 g/dL (28.0-37.0); MONOCYTES 10.6 % (1.0-8.0); PLATELET COUNT 254 thou/uL (150-400); POLYS 67.9 % (36.0-66.0); RBC 4.65 mil/uL (4.50-6.00); RDW 16.7 % (10.5-14.5); WBC 7.6 thou/uL (4.0-11.0)
[2021-06-02 14:14] LABS: ANION GAP 11 mmol/L (7-16); BUN 15 mg/dL (7-18); CALCIUM 8.6 mg/dL (8.5-10.1); CHLORIDE 110 mmol/L (98-107); CO2 24 mmol/L (21-32); CREATININE 1.2 mg/dL (0.7-1.3); GLUCOSE 163 mg/dL (74-106); POTASSIUM 3.9 mmol/L (3.5-5.1); SODIUM 145 mmol/L (136-145)
[2021-06-02 14:18] LABS: ALBUMIN 2.9 g/dL (3.4-5.0); DIRECT BILIRUBIN < 0.1 mg/dL (<0.1-0.2); SALICYLATE < 2.8 mg/dL (2.8-20.0); SGOT 14 U/L (15-37); SGPT 14 U/L (16-63); TOTAL BILIRUBIN 0.2 mg/dL (0.2-1.0); TOTAL PROTEIN 6.5 g/dL (6.4-8.2)
[2021-06-02 17:42] LABS: URINE BILIRUBIN NEGATIVE (Negative); URINE BLOOD NEGATIVE (Negative); URINE CLARITY SL CLOUDY; URINE COLOR YELLOW; URINE GLUCOSE-RANDOM* NEGATIVE (Negative); URINE KETONES TRACE (Negative); URINE LEUKOCYTES-REFLEX NEGATIVE (Negative); URINE NITRITE-REFLEX NEGATIVE (Negative); URINE PROTEIN (DIPSTICK) TRACE (Negative); URINE SPECIFIC GRAVITY >= 1.030 (1.005-1.035); URINE UROBILINOGEN 0.2 E.U./dl (0.2-1.0)
[2021-06-02 17:54] LABS: AMP/METHAMP Negative (Negative); BARBITURATES Negative (Negative); BENZODIAZEPINES Negative (Negative); COCAINE Negative (Negative); METHADONE Negative (Negative); OPIATES POSITIVE (Negative); PCP Negative (Negative)
[2021-06-02 21:37] VITALS: BP 138/80
--- NOTE | 2021-06-03 09:23 | EKG ---
[place] [address] [facility] [employer] [place] [address] ELECTROCARDIOGRAM REPORT Name: BARRON ZAFAR [facility] [id number] Admission: 06/02/21 Attend Phys: Discharge: 06/02/21 Date of : 62 Report #: [id number] [facility] ED Test Date: 2021-06-02 Test Time: 13:50:51 Pat Name: BARRON ZAFAR Department: Room: Gender: General Surgeon: : 1960 Requested By: Adams Norman Order Number: [id number] MD: Jose E Rivas Measurements Intervals [place] Rate: 91 P: 39 IL: 165 QRS: -12 QRSD: 91 T: 42 QT: 366 QTc: 451 Interpretive Statements Sinus rhythm Baseline wander in lead(s) V1 Compared to ECG 05/26/2021 23:41:14 Sinus arrhythmia no longer present Electronically Signed On 06-03-2021 9:23:14 CDT by Jose E Rivas [email or web address] <ELECTRONICALLY SIGNED> By: Jose E Rivas MD, [facility] 06/03/21922 1350 1350 Jose E Rivas MD, FACC /EPI
[2021-06-03] MEDS ORDERED: TYLENOL325 M1 PO (11:26)
== END 2021-06-02 21:30 ==
LOC: ER 13:19
PROVIDERS: Nurse Practitioner
DX: R45.851 Suicidal ideations (principal); Z20.822 Contact with and (suspected) exposure to COVID-19; F32.9 Major depressive disorder, single episode, unspecified; E11.9 Type 2 diabetes mellitus without complications; F20.9 Schizophrenia, unspecified; J45.909 Unspecified asthma, uncomplicated; I10 Essential (primary) hypertension; Z98.890 Other specified postprocedural states; Z86.16 Personal history of COVID-19; Z79.891 Long term (current) use of opiate analgesic; Z79.4 Long term (current) use of insulin; Z79.899 Other long term (current) drug therapy; Z79.82 Long term (current) use of aspirin; Z79.1 Long term (current) use of non-steroidal anti-inflammatories (NSAID); Z79.51 Long term (current) use of inhaled steroids; Z88.2 Allergy status to sulfonamides; Z91.048 Other nonmedicinal substance allergy status; X83.8XXA Intentional self-harm by other specified means, initial encounter; Y93.89 Activity, other specified; Y92.89 Other specified places as the place of occurrence of the external cause; Y99.8 Other external cause status

== ENCOUNTER 2021-06-02 22:00 | Inpatient (IN) | payer OTHER ==
[~2021-06-02] VITALS: Ht 190.5 cm; Wt 141.8 kg
--- NOTE | 2021-06-03 02:12 | NUR ---
PATIENT WAS WHEELED INTO RM 521 B IN A WHEEL CHAIR. HE IS ALERT AND ORIENTED . HE IS ABLE T ANWSER MOST F MY ADMIT QUESTION. HE DENIES PAINS,AVH/HI. HE IS CONTINENT OF BOWEL AND BLADDER WITH MODERATE ASSIST WITH TRANSFER. LUNGS ARE CLEAR VERY DIMINISHED AT THE BASES. HE IS RESTING IN BED . BED IS LOW, LOCKED AND ALARMED.CALL TO THE HOSPITALIST JOSE AT 2200. VITAL SIGN IS STABLE AT 123/55, 61, 97.6, 97% . BS AT 116. MEDICATION ARE VERIFED AND CONSENT TO TREAT IS SIGNED. NO SKIN ISSUES NOTED. CONTINUE CARE.
[2021-06-03 06:57] LABS: CHOLESTEROL 130 mg/dL (<200); HDL CHOLESTEROL 40 mg/dL (>40); LDL CHOLESTEROL 62 mg/dL (<100); TC:HDL 3.3 Ratio (Not establshd); TRIGLYCERIDE 143 mg/dL (<150); VLDL 29 mg/dL (<40)
--- NOTE | 2021-06-03 08:48 | NUR ---
Nutrition: pt admitted to [facility] with depression. PMH: Seizure disorder, HTN, pancreatitis, schizophrenia, DM. Variable weights per hx but no significant loss. BMI ~40, extreme class 3 obesity. New admit and little info. No BG, no intake records. Per past admits pt eats well. Noted recent of sister. Will enter carb controlled diet order. Follow intake trends but place as low nutrition risk for now.
[2021-06-03 09:35] VITALS: BP 121/75
[2021-06-03 11:11] LABS: FOLIC ACID 52.8 ng/mL (8.6-58.9)
[2021-06-03] MEDS ORDERED: TYLENOL325 M1 PO (11:26)
[2021-06-03 11:35] VITALS: BP 121/75
[2021-06-03 12:34] LABS: ABSOLUTE NEUTROPHILS 5.7 thou/uL (1.4-8.2); BASOPHILS 0.4 % (0.0-2.0); HEMATOCRIT 39.3 % (42.0-52.0); HEMOGLOBIN 12.7 gm/dL (14.0-18.0); LYMPHOCYTES 24.7 % (24.0-44.0); MCH 27.9 pg (26.0-34.0); MCHC 32.4 g/dL (28.0-37.0); MCV 86.1 fL (80.0-100.0); PLATELET COUNT 246 thou/uL (150-400); POLYS 63.9 % (36.0-66.0); RBC 4.57 mil/uL (4.50-6.00); RDW 16.8 % (10.5-14.5); WBC 8.9 thou/uL (4.0-11.0)
--- NOTE | 2021-06-03 12:50 | NUR ---
LEAD FURNACE OPERATOR CALLED FOR PT R/T DECREASED LOC, HYPOTENSION AND CHEST PAIN. SEE FLOWSHEET FOR DETAILS.
[2021-06-03 12:53] LABS: CALCIUM 8.7 mg/dL (8.5-10.1); CREATININE 1.2 mg/dL (0.7-1.3); POTASSIUM 3.8 mmol/L (3.5-5.1)
--- NOTE | 2021-06-03 13:23 | NUR ---
RESUMMED CARE FROM OVERNIGHT SHIFT THIS AM PATIENT IN DAY ROOM WITH BLANKET ON HEAD. PATIENT WHEN ASKED ABOUT ANXIETY AND DEPRESSION STATES THEY BOTH WERE A 10. PATIENT DENIES HI STATES HE HAS SI AND HIS PLAN IS TO HANGS SELF; HE DENIES VH. PATIENT STATES HER HEARS VOICES BUT HE CANNOT UNDERSTAND WHAT THEY ARE SAYING TO HIM. PATIENT PLACED ON SI PRECAUTIONS BED STRIPPED, SUICIDE BAG ON BED. PATIENT GETS 1 BLANKET AND WE HAVE HIM IN THE DAY ROOM MONITORING THE PATIENT. AT 1200 PATIENT BECAME DIAPHORTIC AND WAS LOOKING PALE; A RAPID RESPONSE CALLED. PATIENT HAS NS 1000 ML RUNING AT 250 PER HOUR, LABS DRAWN, CT OF HEAD ORDERED. PATIENT HAD CHEST XRAY ORDERED PATIENT STATES HE DOES NOT WANT TO EAT. HE REFUSED BREAKFAST AND LUNCH I GAVE HIM HIS MEDICATION WITH MILK TO COAT STOMACH. WILL CONTINUE TO MONITOR PATIENT FOR SAFETY AND BEHAVIORS.
[2021-06-03 19:36] VITALS: BP 141/74
--- NOTE | 2021-06-04 01:21 | NUR ---
PATIENT RESTING IN CHAIR IN [facility] AREA. PATIENT IS LETHARGIC BUT EASILY AROUSABLE AT THIS TIME. PATIENT IS AAOX3. ASSISTED TO RESTROOM THEN RETURNED TO MAIN AREA. SUICIDE PRECAUTIONS ARE IN PLACE ALTHOUGH PATIENT DENIES ANY THOUGHTS AT THIS TIME. PATIENT MEDICATIONS ARE ON HOLD THIS HS PER PHYSICIAN ORDER. VSS. NO S/S OF DISTRESS NOTED AT THIS TIME. WILL CONTINUE TO MONITOR PATIENT FOR CHANGES IN STATUS.
[2021-06-04 02:06] LABS: GLYCOHEMOGLOBIN (HGB A1C) 6.8 % (4.8-5.6)
--- NOTE | 2021-06-04 08:09 | EKG ---
[address] [place] [address] ELECTROCARDIOGRAM REPORT Name: BARRON ZAFAR Room #: 519B-[facility] IN ..#: [id number] Admission: 06/02/21 Attend Phys: Gil العراقي DO Discharge: Date of : 62 Report #: [id number] [facility] Test Date: 2021-06-03 Test Time: 12:16:13 Pat Name: BARRON ZAFAR Department: Room: [facility] Gender: M Print Developer: OLAF : 1960 Requested By: Gil العراقي Order Number: [id number] MD: Natalio Urias Measurements Intervals [place] Rate: 81 P: 23 ME: 168 QRS: 1 QRSD: 93 T: 16 QT: 388 QTc: 451 Interpretive Statements Sinus rhythm No significant abnormality Compared to ECG 06/02/2021 13:50:51 No significant changes Electronically Signed On 06-04-2021 8:09:04 CDT by Natalio Urias [email or web address] <ELECTRONICALLY SIGNED> By: Natalio Urias MD, [facility] 06/04/21 0809 D: [id number] 15 Natalio Urias MD, FAC /EPI
[2021-06-04 10:19] VITALS: BP 141/86
--- NOTE | 2021-06-04 13:52 | NUR ---
Assumed pt care at 0700. pt was alert and oriented x4. Assessments completed, vss. Admitted to si/hi. Stated his plan was to hang self. Goal was to this shift. Denies pain at this time. calm, depressed and withdrawn. Refused meals, took meds with lots of encouragement from staffs and loading unit tool setter Lacey. Ambulates with a curt chair. Pt is 1 assist with toileting and care. continent of bowel and bladder. Covers his face with a blanket. PT IVS pulled out per Dr Simon order. AT this time pt is in the day room covering his face. Will continue to monitor.
--- NOTE | 2021-06-04 19:22 | H ---
[facility] [place] [address] HISTORY AND PHYSICAL Name: BARRON ZAFAR JR Room #: 519B-B ADM IN M.R.#: [id number] Admission: 06/02/21 Attend Phys: Gil العراقي DO Discharge: Date of : 62 Report #: [id number] THIS REPORT FOR: cc: Sincere Germain MD, Shyam MD Kerstein,Gil Powell DO ~ DATE OF SERVICE: 06/03/2021 INPATIENT PSYCHIATRIC EVALUATION ATTENDING PSYCHIATRIST: Gil العراقي DO SCADA OPERATOR: Gil Simon MD REASON FOR ADMISSION: Suicidal ideation with a plan to hang himself. SOURCES OF INFORMATION: Very limited records from [facility], interview with the patient, which was limited and difficult, Emergency Room notes, discussion with staff. CHIEF COMPLAINT: "I want to hang myself" and "will you kill me." HISTORY OF PRESENT ILLNESS: This is a 60-year-old obese, large habitus male. The patient is single and resides at [facility]. The patient has lived there since the early part of this year. Apparently, his sister was his caregiver and she last winter. I do not know whether this was COVID related or not. In any event, the patient states he wants to , has nothing to live for. He expressed this to nursing facility and they sent him out on 911. We did not get any advance notice on the [facility]. Additional information from the Emergency Room here at [facility] is as follows. Apparently, the patient's sister, caregiver, in April, and he has been depressed ever since and he is planning to hang himself. The patient had a flat affect. MEDICAL AND SURGICAL HISTORY: Includes knee surgery 15 times amazingly in both knees; neck surgery, which involved a fusion; right carpal tunnel surgery, diabetes mellitus, chronic pain in the neck, seizure disorder, asthma, hypertension, right total knee, history of TIA, history of sleep apnea, history of diverticulitis, history of colon resection in 2007, chronic neck and lower back pain. He sees Pain Management and gets injections. History of COVID-19. PSYCHIATRIC HISTORY: Includes "schizophrenic," panic attacks, could not exclude nonepileptiform seizures. [facility] [address] [place] [address] HISTORY AND PHYSICAL Name: ANDRADEBARRON Room #: 519B-B ADM IN M.R.#: [id number] Admission: 06/02/21 Attend Phys: Gil العراقي DO Discharge: Date of : 62 Report #: [id number] MEDICATIONS: His med list from [facility] is as follows: Humalog, which is lispro sliding scale. Imitrex 25 mg q. 2 hours p.r.n. for migraine. Invega Trinza suspension 546 mg, apparently was ordered 05/07. Midodrine 1 mg by mouth 3 times a day, Percocet 5/325 q. 6 hours p.r.n. for pain. Protonix, the strength is 40 mg. Symbicort 160/4.5, two puffs inhaled orally two times a day. Ventolin two puffs q. 6 hours p.r.n. for wheezing, zolpidem 12.5 mg oral at bedtime for insomnia, Tylenol, allopurinol 300 mg oral daily, modafinil 250 mg by mouth 1 time a day for narcolepsy, atorvastatin 80 mg oral at bedtime, clonazepam 1 mg oral by mouth for insomnia. Clozapine 100 mg oral twice daily, was given a dose this morning. Cyanocobalamin 500 mcg oral daily, cyclobenzaprine 10 mg oral daily for 24 hours as needed for spasms. Depakote 500 mg tabs 4 tabs by mouth at bedtime for seizure disorder, so I think that will be 2000 mg at night. Docusate 100 mg orally 2 times a day for constipation, duloxetine 60 mg oral daily for depression, Nexium 40 mg oral twice a day for GERD, folic acid 1 mg daily for supplementation. ALLERGIES: SULFA DRUGS AND SULFONAMIDE ANTIBIOTICS, CAUSE A RASH; AND TAPE, WHICH CAUSES RED BLOTCHES. SOCIAL HISTORY: Denied history of tobacco use. No alcohol use. No recreational drug use. REVIEW OF SYSTEMS: From the ER: CONSTITUTIONAL: Denied fever, chills, malaise, or unexplained weight change. EYES: Denies eye pain, visual change, or discharge. HEENT: Denies hearing changes, ear drainage, ear infections, ear pain, neck pain or neck stiffness. RESPIRATORY: Denies cough, shortness of breath, hemoptysis, or respiratory distress. CARDIOVASCULAR: Denies chest pain, chest pain with exertion, or edema. GASTROINTESTINAL: Denies abdominal pain, nausea, vomiting or diarrhea. GENITOURINARY: Denies burning, frequency or dysuria. MUSCULOSKELETAL: Denies back pain, joint pain, muscle weakness or myalgias. SKIN: Denies rash. PHYSICAL EXAMINATION: GENERAL: Weight 144.469 kg, BMI 39.8. VITAL SIGNS: Temperature 35.9, pulse 80, respirations 18, BP 121/75, O2 sat 94%. MUSCULOSKELETAL: In Amanda chair, reclined, having a blanket over his head frequently. LABORATORY DATA: Labs from today, white count 8.9, H and H 12.7 and 39.3, platelet count 246. D-dimer elevated at 26. Chemistry: Sodium 145, potassium 3.9, chloride 109, bicarbonate 25, anion gap 11, BUN 14, creatinine 1.2, [facility] [address] [place] [address] HISTORY AND PHYSICAL Name: BARRON ZAFAR Royal Room #: 519B-B [facility] IN [place]iel.#: [id number] Admission: 06/02/21 Attend Phys: Gil العراقي DO Discharge: Date of : 62 Report #: [id number] estimated GFR 62, glucose 152, calcium 8.7. Troponin 4. Urine drug screen from yesterday was positive for opiates, otherwise negative. COVID-19 PCR from yesterday was negative. IMAGING: Head CT was done today, it showed no acute intracranial process. Chest x-ray was normal from today. ADDITIONAL INFORMATION: The patient was born and raised in [place]. He completed the high school. Reports 2 years of correspondence school in criminal justice. He denies working. It is unclear exactly age of onset of mental illness. Never , no children. Denies history of physical, sexual, or emotional abuse. Unclear if he has history, but I doubt it. MENTAL STATUS EXAMINATION: Well-developed, ill-appearing, large habitus, obese male with a woods. Attention and concentration limited, . Speech linear and goal directed with some delay for prompting. Thought content, fair, poverty of thought, endorsed suicidal ideation, denied plan today. Denies auditory, visual, or tactile hallucinations. Memory was not formally tested. Insight is impaired, judgment is impaired. Fund of knowledge, no greater than average. FORMULATION: A 60-year-old male admitted via ER for suicidal ideation with a plan to hang himself. The patient has a history of schizophrenia and is on Invega Trinza. DIAGNOSES: At this time, major depressive disorder, single episode, severe degree; schizophrenia by history. Numerous medical comorbidities including diabetes mellitus, probable obstructive sleep apnea, diabetes, hypertension. PLAN: Voluntary admission to the [facility] Unit in [facility]. Evaluate and stabilize. Hospitalist is consulted. In terms of his in-hospital medications, zolpidem tartrate 5 mg oral at bedtime is ordered for sleep, Depakote ER 2000 mg for seizure disorder and mood stabilization, Clozaril 100 mg oral b.i.d., clonazepam 1 mg at bedtime. I am going to go ahead and discontinue the clonazepam as scheduled benzodiazepines are best avoided with Clozaril. Additional information: Clozaril 100 mg p.o. b.i.d., I will probably reduce that to 50 mg twice a day given the events today above described; atorvastatin 80 mg oral at bedtime, insulin Humalog sliding scale. GI cocktail was given this morning. Midodrine 5 mg after meals, Keppra 1500 mg b.i.d. for seizure disorder, folic acid 1 mg daily, duloxetine 60 mg daily, docusate 100 mg p.o. b.i.d., cyanocobalamin 500 mcg oral daily, allopurinol 300 mg oral daily, pantoprazole 40 mg oral daily, and Fioricet p.r.n. I am going to go ahead and discontinue that. Shortly after I had interview with the patient, I got a call from a nurse that the patient was very somnolent, hypotensive. I advised rapid [facility] [address] [place] [address] HISTORY AND PHYSICAL Name: BARRON ZAFAR JR Room #: 519B-B ADM IN Evette#: [id number] Admission: 06/02/21 Attend Phys: Gil العراقي DO Discharge: Date of : 62 Report #: [id number] response will be called to work the patient up. So far, there is an elevated D-dimer. I did order 1000 mL of normal saline, which the patient got. We have not come up with any focus of infection that would indicate sepsis. There is a concern of possible DVT, pulmonary embolism. Deferring to the hospitalist whether to do a CT angiogram or Doppler ultrasound of his legs given his other medical problems. Given the hypotension, I will reduce his Clozaril to 50 mg twice a day. To quote a colleague of mine, the patient's status is tenuous at this point. ESTIMATED LENGTH OF STAY: 10-14 days. STRENGTHS: He is insured, has a placement. WEAKNESSES: Multiple morbidities, recent of a caregiver and supportive family member. Time spent on this case was over 2 hours including a rapid response and issues going along with that. GReater than 50% of time was sepnt on counseling and coordination of care The patient is a FULL CODE at this time. <ELECTRONICALLY SIGNED> By: Gil العراقي DO 06/04/21 1922 1430 1523 Gil العراقي DO /nt
[2021-06-05] VITALS (8 sets, daily range): BP systolic 74–141; BP diastolic 47–95
--- NOTE | 2021-06-05 03:10 | NUR ---
AT ONSET OF SHIFT PT WAS SLEEPING IN RECLINER IN DAY ROOM. PT IS TO REMAIN IN SIGHT OF STAFF AT ALL TIMES DUE TO SUICIDAL IDEATION WITH PLAN TO HANG HIMSELF. PT WAS ALERT AND ORIENTED X4 WITH A FLAT AFFECT. PT APPEARED DEPRESSED. PT ENDORSED SI WITH A PLAN TO HANG HIMSELF. PT ENDORSED AUDITORY HALLUCINAIONS THAT ARE MUMBLED VOICES HE CANNOT UNDERSTAND. PT ENDORSED VISUAL HALLUCINATIONS OF SEEING BUGS. PT REFUSED MEDICATIONS. PT WAS COMPLIANT WITH VITAL SIGNS AND BLOOD SUGAR CHECKS. PT REFUSED TO EAT OR DRINK. PT STATED HE HAS NOT HAD ANYTHING TO EAT FOR 4 DAYS AND ONLY DRANK WATER IN THE AM WHEN TAKING HIS MEDS. PT'S LIPS ARE PALE AND DRY. PT STATED HE COULD STARVE HIMSELF TO . FALL PRECAUTIONS ARE IN PLACE. WILL CONTINUE TO MONITOR.
--- NOTE | 2021-06-05 12:25 | NUR ---
Sad and depressed. Frequent suicidal thoughts. States he wants to d/t sister dying and not having any support systems. Denies plan and HI. Able to stand and take a few steps. States he is dizzy, given orange juice. Ate some breakfast and most of lunch. States chest pain this AM achy/pressure, refuses Tylenol. States he has head ache and chest pain 10/10 during lunch, did accept Tylenol. Laying in recliner in day room all AM without s/o distress. Breath sounds clear and diminished. Reg HR auscultated. Color pink with brisk capillary refill and palpable peripheral pulses. Dark yellow, clear urine per toilet. Hypoactive bowel sounds over large, soft, rounded abdomen. Currently sitting in dining room with peers without s/o distress. More conversive.
[2021-06-05 15:16] LABS: CREATININE 1.3 mg/dL (0.7-1.3); POTASSIUM 3.6 mmol/L (3.5-5.1)
--- NOTE | 2021-06-05 20:08 | NUR ---
This RN was informed by lab that pt's covid pcr came back positve. Pt informed oncall Rose provider Ms Lino, as well as lighthouse keeper. Ms Lino notifed Dr العراقي and awaiting new orders. Informed by lighthouse keeper to have pt in , door open and supervised [id number].
--- NOTE | 2021-06-06 04:51 | NUR ---
Pt continues to remain in enhanced contact isolation. Pt's bed alarm went off. INFORMATICA DEVELOPER went in, saw pt in a crawling position. pt verbalized that he got up to use bathroom, felt weak and decided to crawl because he had to have a bm. Nursing assessed pt and pt clearly verbalized to nursing that he did not fall. Pt otherwise slept well this shift. Denied that SI, that he no longer wished to kill himself. Fall precaution remains in place. IV remains in place SL. Nursing to continue to monitor.
[2021-06-06 08:54] VITALS: BP 149/83
[2021-06-06 12:07] VITALS: BP 132/61; BP 149/83
--- NOTE | 2021-06-06 13:59 | NUR ---
RESUMMED CARE FROM OVERNIGHT SHIFT THIS AM, PATIENT IN ROOM SLEEPING. I DID MY ASSESSMENT PATIENT ALERT ORIENTED TIMES 3-4 PATIENT DENIES SI/HI/AH VH AT PRESENT. PATIENTS ABDOMEN SOFT BOWEL SOUNDS PRESENT PATIENTS LUNGS CLEAR. PATIENT STATES HE FEELS DIZZY AND TIRED HE ATE BREAKFAST AND LUNCH. PATIENT TOOK MEDICATION WITHOUT INCIDENCE; PATIENT CALM COOPERATIVE HAS NOT DISPLAYED ANY SHORTNESS OF BREATH OR SYMPTOMS OF COVID. WILL CONTINUE TO MONITOR PATIENT FOR SAFETY AND BEHAVIORS.
[2021-06-06 19:25] VITALS: BP 149/83
[2021-06-06 20:04] VITALS: BP 141/84
--- NOTE | 2021-06-06 21:23 | NUR ---
PATIENT RESTING IN HIS ROOM. PT IS AAOX4. QUARANTINE IN PLACE DUE TO RECENT POSITIVE COVID PCR. PATIENT HAS FLAT AFFECT AND IS WITHDRAWN AND APPEARS DEPRESSED. PT DID NOT MAKE EYE CONTACT AND STATED THAT HE WAS TIRED. PATIENT REFUSED HIS HS MEDICATIONS STATING THAT HE IS TOO TIRED TO TAKE THEM. HIS VITALS ARE WNL. PATIENT IS ASYMPTOMATIC AT THIS TIME. DENIES PAIN OR NEEDS. WILL CONTINUE TO MONITOR FOR CHANGES IN PATIENT STATUS.
[2021-06-06 23:47] LABS: ALBUMIN 2.6 g/dL (3.4-5.0); CALCIUM 8.4 mg/dL (8.5-10.1); TOTAL BILIRUBIN 0.2 mg/dL (0.2-1.0); TOTAL PROTEIN 5.9 g/dL (6.4-8.2)
[2021-06-07 06:35] VITALS: BP 151/87
--- NOTE | 2021-06-07 11:52 | NUR ---
Fax sent to [facility] - Patient updates from initial-06/07
--- NOTE | 2021-06-07 17:42 | NUR ---
HAS BEEN COOPERATIVE AND PLEASANT THROUGHOUT SHIFT- DENIES SI/SH/HI-STATES THAT THE LAST TIME HE HAD SUICIDAL THOUGHTS WAS 2 DAYS AGO-STATES "I THOUGHT I WAS GOING TO GET REALLY SICK BUT SO FAR I FEEL ALLRIGHT" DOES REPORT DOME SHORTNESS OF BREATH R/T DX ASTHMA AND NOT HAVING HIS INHALER ORDERED. DR AVILES CONTACTED RE ABOVE-O2 SAT ON RA IS 96 PERCENT-INITIALLY THIS AM REFUSED ALL MEDS-DID TAKEKEPPRA,CYMBALTA AND CLOZARIL LATER IN SHIFT AFTER MUCH ENCOURAGEMENT-NO COUGH [id number] IS GOOD
[2021-06-07 19:30] VITALS: BP 140/87
[2021-06-07 19:54] VITALS: BP 140/87
--- NOTE | 2021-06-07 20:33 | NUR ---
Assumed care on 06/07/21 @ 1900, A&Ox4 FSBS 172 Cooperated with asssessment. Patient is covid + on 06/02 and continues to be placed on the H floor under the care of Kr. العراقي. IV SL in the wrist C/D/I. Will continue to monitor.
[2021-06-08 05:44] LABS: ABSOLUTE NEUTROPHILS 3.6 thou/uL (1.4-8.2); BASOPHILS 0.5 % (0.0-2.0); EOSINOPHILS 1.1 % (0.0-3.0); HEMATOCRIT 38.2 % (42.0-52.0); HEMOGLOBIN 12.7 gm/dL (14.0-18.0); LYMPHOCYTES 23.3 % (24.0-44.0); MCH 28.4 pg (26.0-34.0); MCHC 33.2 g/dL (28.0-37.0); MCV 85.7 fL (80.0-100.0); MONOCYTES 11.1 % (1.0-8.0); PLATELET COUNT 191 thou/uL (150-400); RBC 4.45 mil/uL (4.50-6.00); RDW 17.3 % (10.5-14.5); WBC 5.6 thou/uL (4.0-11.0)
[2021-06-08 09:26] VITALS: BP 156/82
[2021-06-08 10:00] VITALS: BP 156/82
--- NOTE | 2021-06-08 10:33 | NUR ---
06-08-2021--10:30 AM--[facility]. Call to Lin khoury ([phone]) told her he can DC today if possible. Dr. Duke and I will talk to patient re: mood and thoughts of suicide. He will need a sitter if he is having suicidal ideations. Advised of Covid + status. They have a covid unit. Lin will call me back after talking to DON and admissions.
--- NOTE | 2021-06-08 11:01 | NUR ---
06-08-2021--10:50 AM--visited patient with Dr. Shrestha and talked to about the pros and cons of going to the medical unit or back to [facility] (his previous shelter). They have a COVID unit. Patient denies any current suicidal ideations/attempts or plans. Will contine to work with Jesi khoury to help facilitate the move today to the shelter if possible. Lin/peng said the delay would be of patients and rooms needed to be shifted. Patient is agreeable to going back to his [facility] today if possible.
--- NOTE | 2021-06-08 12:23 | NUR ---
RESUMMED CARE FROM OVERNIGHT HSIFT THIS AM, PATIENT IN ROOM ASLEEP. I WOKE PATIENT UP TO DO ASSESMENT AND TO GIVE HIM HIS BREAKFAST. PATIENT TOOK MEDICATION WITHOUT INCIDENCE; PATIENT DENIES SI/HI/AH/VH AT PRESENT. PATIENTS ABDOMEN SOFT BOWEL SOUNDS PRESENT, PATIENTS LUNGS CLEAR. PATIENT CALM COOPERATIVE HAS NO SYMPTOMS FROM COVID. PATIENT IS TO DISCHARGE TODAY TO [facility]. WILL SEND DISCHARGE INSTRUCTIONS AND CALL REPORT TO FACILITY. WILL CONTINUE TO MONITOR PATIENT FOR SAFETY AND BEHAVIORS.
--- NOTE | 2021-06-08 12:51 | NUR ---
06-08-2021--12:45 PM--called Marika Ceballos for [facility] and stated we needed to DC today by 2:00 PM She called back stating there was a bed. No rounding psychiatrist or therapist at this facility. [facility]. They can't p/u until 4:00. put notice on board so paperwork is completed.
[2021-06-08] MEDS ORDERED: CLOZAPINE50 MG PO (14:08)
--- NOTE | 2021-06-09 15:28 | D ---
[facility] [place] [address] DISCHARGE SUMMARY Name: BARRON ZAFAR Room #: 519B-B [facility] IN .R.#: [id number] Admission: 06/02/21 Attend Phys: Gil العراقي DO Discharge: 06/08/21 Date of : 62 Report #: [id number] THIS REPORT FOR: cc: Sincere Germain MD, Shyam MD Kerstein, Andrew H. DO ~ DATE OF SERVICE: 06/08/2021 ATTENDING PSYCHIATRIST: Gil العراقي DO PRIMARY COMMUNICATIONS TECHNOLOGIST: Gil Simon MD ADDITIONAL HYDROGRAPHER: Elías Veras M.D. from Infectious Disease Service. DISCHARGE DIAGNOSES: Schizophrenia; major depressive disorder, recurrent, severe degree; COVID-19 positive. OTHER COMORBIDITIES: Include obesity, BMI 39.1. The patient is being discharged back to [facility] for long-term care. MEDICATIONS: The patient's medication regimen includes allopurinol 300 mg oral daily for hyperuricemia, atorvastatin 80 mg oral daily for hyperlipidemia, folic acid 1 mg oral daily for supplementation, docusate 100 mg oral twice daily for bowel motility, cyanocobalamin 500 mcg oral daily for supplementation, Depakote ER 2000 mg oral at bedtime for impulse control and augmentation of seizure prevention, duloxetine 60 mg oral daily for depression, Keppra 1000 mg oral twice daily for history of seizure disorder, insulin sliding scale with Humalog, pantoprazole 40 mg oral daily. He also is taking Clozaril 50 mg oral twice daily for schizophrenia. Our Infectious Disease Service recommended consideration of an antibody that was not available in the hospital for his COVID-19 positive state. I marked this down on the discharge orders to be considered by the skilled nursing physician. The patient, as stated, is discharging to long-term care. His diet is an 1800-calorie diabetic diet. Accu-Cheks should be done before meals and bedtime. I have recommended physical therapy evaluation to be done at skilled nursing. IMAGING STUDIES: Radiology done on this admission included a CT of the head without contrast, which was negative; CTA of the chest which was done on 06/03/2021, which was negative; chest x-ray, which showed possible left basilar opacities, may represent atelectasis or subtle infiltrate, recommending followup. LABORATORY DATA: Significant laboratories this admission from 06/16/2021, H and H 12.7 and 38.2, white count 5.6, platelet count 191. Coagulation: D-dimer [address] [address] DISCHARGE SUMMARY Name: BARRON ZAFAR Room #: 519B-B [facility].#: [id number] Admission: 06/02/21 Attend Phys: Gil العراقي DO Discharge: 06/08/21 Date of : 62 Report #: [id number] 0.61. Chemistry this admission, sodium 148 on 06/06/2021, potassium 4.0, chloride 110, bicarbonate 26, anion gap 12, BUN 14, creatinine 1.0, estimated GFR 76, A1c is 6.8. Calcium 8.4, slightly low. Ferritin 36, total bilirubin 0.2, direct bilirubin less than 0.1, AST 7, ALT 13, alkaline phosphatase 97, LDH total 119. Troponin I sensitivity done on 06/06/2021 was 4. CRP 5.9, albumin 2.6. Triglycerides 143, cholesterol 130, LDL 62, HDL 40. B12 430, folate 52.8. TSH 1.047, as a previous admission free T4. Urinalysis this admission showed trace protein, trace ketones. No cultures triggered. UDS was positive for opiates. COVID-19 PCR done on 06/05/2021 was positive, which was a surprise. REASON FOR ADMISSION: Back on 06/02/2021 or so, this 60-year-old obese male sent out from [facility] without prior notification to the ER. The patient expressed at nursing facility, he wanted to end his life and they sent him to the ER. Of note, his sister was his caregiver and she this past winter, which necessitated the skilled nursing placement. HOSPITAL COURSE: The patient was admitted to Geriatric Psychiatry Unit. Initially, we had him on 100 mg b.i.d. dose of Clozaril. The patient had a rapid response once in the last week, I believe that was on 06/03/2021. There was hypotension. He was given an IV fluid bolus. He improved from this. His Clozaril was reduced to 50 mg twice a day. Then on the evening of 06/05/2021, the patient tested positive under surveillance efforts for the nursing unit, he is on for COVID-19. He had complained of a headache that day, he was placed in isolation in his room. The patient did well and he did not develop the COVID pneumonia. Given the fact he was no longer suicidal and COVID-19 positive, restricted to room on the Psychiatry Unit. Inquiry was made with his nursing facility whether they take him back as [facility] does have a COVID unit. They will take him back once he has passed the COVID quarantine period. Psychiatric was following on him, it was recommended the patient essentially has severe persistent mental illness and likely be stuck in the skilled nursing the rest of his life. PHYSICAL EXAMINATION: VITAL SIGNS: At time of discharge is as follows: Temperature 36.3, pulse 65, respirations 18, BP 156/82, O2 sat 98%. MUSCULOSKELETAL: Impaired gait, needs assistance, can walk a little. MENTAL STATUS EXAMINATION: A well-developed, unkempt male, appearing around stated age. Attention fair. Concentration limited. Speech normal rate, volume, and tone. Thought process: Linear and goal directed. Thought content: Relative poverty of thought. mood/affect- constricted,congruent Denied suicidal or homicidal ideation, auditory, visual, or tactile hallucinations. Mood and affect: Congruent, constricted, diminished range. Insight and judgment limited. Fund of knowledge below average. [facility] [address] [place] [address] DISCHARGE SUMMARY Name: BARRON ZAFAR Room #: 519B-B [facility] IN ..#: [id number] Admission: 06/02/21 Attend Phys: Gil العراقي DO Discharge: 06/08/21 Date of : 62 Report #: [id number] Of note, since he is on Clozaril, his EKG results most recently on 06/03/2021, QTC 451, QT 388, MI interval 160 milliseconds and sinus rhythm and a rate 81. <ELECTRONICALLY SIGNED> By: Gil العراقي DO 06/09/21 1528 1614 2108 Gil العراقي DO /nt
== END 2021-06-08 16:35 | DRG 885 ==
LOC: SBH 22:00
PROVIDERS: Internal Medicine; Nurse Practitioner; ADMIT Psychiatry & Neurology Psychiatry; ATTEND Psychiatry & Neurology Psychiatry
DX: F32.2 Major depressive disorder, single episode, severe without psychotic features (principal); U07.1 COVID-19; J98.11 Atelectasis; R45.851 Suicidal ideations; F20.9 Schizophrenia, unspecified; E11.9 Type 2 diabetes mellitus without complications; G89.29 Other chronic pain; J45.909 Unspecified asthma, uncomplicated; R42 Dizziness and giddiness; I95.9 Hypotension, unspecified; R41.82 Altered mental status, unspecified; G40.909 Epilepsy, unspecified, not intractable, without status epilepticus; E78.5 Hyperlipidemia, unspecified; R07.89 Other chest pain; R10.13 Epigastric pain; M54.9 Dorsalgia, unspecified; E66.9 Obesity, unspecified; M54.2 Cervicalgia; I10 Essential (primary) hypertension; G47.33 Obstructive sleep apnea (adult) (pediatric); Z86.73 Personal history of transient ischemic attack (TIA), and cerebral infarction without residual deficits; Z90.49 Acquired absence of other specified parts of digestive tract; Z86.16 Personal history of COVID-19; Z88.2 Allergy status to sulfonamides; Z91.048 Other nonmedicinal substance allergy status; Z79.899 Other long term (current) drug therapy; Z86.711 Personal history of pulmonary embolism; Z68.39 Body mass index [BMI] 39.0-39.9, adult
CPT/HCPCS: 10880